=== PATIENT | female | born 1955 | race Caucasian/White ===

== ENCOUNTER → 2016-06-07 | Outpatient (CLI) | payer BC ==
--- NOTE | 2016-06-08 09:37 | WWHP ---
DATE OF SERVICE: 06/07/2016 CHIEF COMPLAINT: The patient is here for her routine gynecologic exam and mammogram. HPI: This is a 61-year-old G2, P2 with an LMP of 2009. The patient is without gynecologic complaints. She has been inconsistently using the Premarin vaginal cream, but she states it does help with her sexual activity when she does use it. She denies any postmenopausal bleeding. PAST MEDICAL HISTORY: Hypothyroidism, status post radioactive iodine treatment for hyperthyroidism, asthma which is exercise induced, and seasonal allergies. Also history of osteoporosis. She was started on Fosamax in 2014. MEDICATIONS: 1. Singulair 10 mg daily. 2. Thyroxine 88 mcg daily. 3. Alendronate 70 mg weekly. 4. Premarin vaginal cream 1 to 2 gm twice weekly. Allergies to SULFA. 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 SOCIAL HISTORY: She denies tobacco and drug use and has about 6 alcoholic drinks per week. She has been twice. She has been with her boyfriend for 28 years and lives with him. She works at [employer] in [place]. REVIEW OF SYSTEMS: She has gained about 10 pounds over the last year. RESPIRATORY: She has had some chest wall discomfort occasionally when she takes a deep breath. She denies cardiac or GI problems. PHYSICAL EXAM: Blood pressure 110/75. Height 5 feet 5 inches. Weight 140 pounds. Temperature 98.6, pulse 82. This is a well-developed, well-nourished white female who is alert and oriented x3 in no acute distress. HEENT is within normal limits. NECK: Supple without mass or thyromegaly. CHEST AND LUNGS: Clear to auscultation. HEART: Regular rate and rhythm. Breasts are without mass or discharge. Axillary exam is negative for adenopathy. BACK: Negative for CVA tenderness. ABDOMEN: Soft, nontender, without palpable masses. PELVIC EXAM: External genitalia reveals mild atrophy without lesions. Cervix and vagina reveal mild atrophy without lesions. There is a grade 1 to 2 rectocele which is noted and grade 1 cystocele which goes to a grade 2 cystocele with Valsalva. There is a grade 1 uterine prolapse as well. The uterus is midposition, nongravid size and nontender. There are no palpable adnexal masses or tenderness. Rectovaginal exam confirms a small rectocele but is otherwise negative for mass or tenderness and is negative for occult blood. EXTREMITIES: Nontender. IMPRESSION: 1. A 61-year-old menopausal female with mild pelvic prolapse consisting of grade 2 rectocele, grade 1 to 2 cystocele and grade 1 uterine prolapse. This is stable from her previous exam. 2. History of osteoporosis, doing well on alendronate. PLAN: 1. Pap smear was deferred, since she had a normal one last year. 2. Self breast examination was discussed. 3. Mammogram will be done today. 4. Continue Fosamax as directed. 5. She will also continue Premarin vaginal cream as directed. 6. I have recommended bone density screening since it has been about 2 years since her last one. We will discuss the possibility of a trial off of Fosamax in 1 to 3 years. 7. She will return in 1 year.
--- NOTE | 2016-06-09 13:32 | MM ---
Reason for exam: screening (asymptomatic). Last mammogram was performed 1 year and 1 month ago. History: Patient is postmenopausal. Lumpectomy of the right breast, June 13, 2006. Silicone gel implants in both breasts, 2003. Benign excisional biopsy of the left breast, June 08, 2000. Saline implants in both breasts, January 1996. Taking estrogen for 1 year beginning at age 56. Taking progesterone for 1 year beginning at age 56. Physical Findings: A clinical breast exam by your physician is recommended on an annual basis and results should be correlated with mammographic findings. MG Screening Mammo Implant/CAD Bilateral CC, MLO, and ID view(s) were taken. Prior study comparison: May 19, 2015, bilateral MG screening mammo implant/CAD. The breast tissue is heterogeneously dense. This may lower the sensitivity of mammography. Bilateral implants. No significant changes when compared with prior studies. ASSESSMENT: Benign, BI-RAD 2 RECOMMENDATION: Routine screening mammogram of both breasts in 1 year.
== END | disposition home or self-care (01) ==
LOC: WWCWWP 14:32
PROVIDERS: ATTEND Obstetrics & Gynecology
DX: Z12.31 Encounter for screening mammogram for malignant neoplasm of breast (principal)

== ENCOUNTER → 2016-09-08 | Outpatient (CLI) | payer BC ==
--- NOTE | 2016-09-08 17:50 | BD ---
EXAMINATION TYPE: MG DEXA axial skeleton. DATE OF EXAM: 09/08/2016 COMPARISON: Previous study dated 04/29/2014. CLINICAL HISTORY: Postmenopausal female. Height: 5 FT 3 1/2 IN Weight: 135 FRAX RISK QUESTIONS: Alcohol (3 or more units per day): NO Family History (Parent hip fracture): NO Glucocorticoids (More than 3mos): NO (Ex: prednisone, prednisolone, methylprednisolone, dexamethasone, and hydrocortisone). History of Fracture in Adulthood: NO Secondary Osteoporosis: 1. Type 1 Diabetes: NO 2. Hyperthyroidism: NO 3. Menopause before 45: NO 4. Malnutrition: NO 5. Chronic liver disease: NO Rheumatoid Arthritis: NO Current Tobacco Use: NO RISK FACTORS HISTORY OF: Active: YES Postmenopausal woman: AGE 53 Take estrogen and/or progesterone medications: VAGINAL CREAM How lon YEARS Lost more than 2 inches in height since high school: YES MEDICATIONS: Prednisone or other steroids: How Long: Thyroid Medications: YES Which medication: LEVOTHYROXINE How Lon YEARS Osteoporosis Medications: YES Which medication: FOSAMAX How Lon YEARS Additional Medications: SINGULAIR,LEVOTHYROXINE, FOSAMAX Additional History: EXAM MEASUREMENTS: Bone mineral densitometry was performed using the [email or web address] System. Bone mineral density as measured about the Lumbar spine is: ----- L1-L4(G/cm2): 0.933 T Score Values are as follows: ----- L2: -2.2 ----- L3: -2.4 ----- L4: -2.1 ----- L1-L4: -2.1 Bone mineral density has: Increased 12.1% since study of: 2014 Bone mineral density about the R hip (g/cm2): 0.776 Bone mineral density about the L hip (g/cm2): 0.801 T Score values are as follows: -----R Neck: -1.9 -----L Neck: -1.7 -----R Total: -1.3 -----L Total: -1.2 Bon mineral density has: Increased 3.4% since study of: 2014 IMPRESSION: OSTEOPENIA. NOTE: T-SCORE=SD OF THE YOUNG ADULT MEAN.
== END ==
LOC: RADBDWWP 15:37
PROVIDERS: ATTEND Obstetrics & Gynecology
DX: M81.0 Age-related osteoporosis without current pathological fracture (principal); Z79.899 Other long term (current) drug therapy; M85.80 Other specified disorders of bone density and structure, unspecified site
CPT/HCPCS: 77080

== ENCOUNTER 2016-12-01 15:33 | Emergency (ER) | payer BC, OTHER ==
[2016-12-01 16:04] VITALS: BP 139/78; PULSE 86; RESP 18; TEMP 99.6
[2016-12-01] MEDS ORDERED: PROPARACAINE 0.5% OPHTH DROPS 15 ML BTL LEFT EYE STA (16:23)
[2016-12-01] MEDS ORDERED: PROPARACAINE 0.5% OPHTH DROPS 15 ML BTL ONE (16:25)
[2016-12-01] MEDS ORDERED: DIPH,PERTUS(ACELL)TETVAC-LF 0.5 ML VIAL IM ONE (16:38)
--- NOTE | 2016-12-01 16:38 | ED ---
General Adult HPI - General Chief complaint: Eye Problems Stated complaint: IHS/Eye Problem Time Seen by Provider: 12/01/16 16:21 Source: patient, RN notes reviewed Mode of arrival: ambulatory - History of Present Illness Initial comments: Patient 61-year-old female who presents emergency room today with a chief complaint of possible foreign body to the left eye. She does admit that she was at work earlier today when some water splashed back up into her eyes. 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 She lives been little fragments of the water. She states she did have her seat glasses on but it did splash and around the side into her left eye. Patient does admit that she still feels some irritation to the left eye but denies any other complaints or symptoms. Patient denies any recent fever, chills, shortness of breath, chest pain, back pain, abdominal pain, nausea or vomiting, numbness or tingling , dysuria or hematuria, constipation or diarrhea, headaches or visual changes, or any other complaints. - Related Data Previous Rx's Medication Instructions Recorded Tobramycin 0.3% Ophth Soln [Tobrex 1 - 2 drop LEFT EYE QID 7 Days ml 12/01/16 0.3% Ophth Soln] Allergies Allergy/AdvReac Type Severity Reaction Status Date / Time Sulfa (Sulfonamide Allergy Rash/Hives Verified 12/01/16 16:05 Antibiotics) Review of Systems ROS Statement: Those systems with pertinent positive or pertinent negative responses have been documented in the HPI. ROS Other: All systems not noted in ROS Statement are negative. Past Medical History Past Medical History: Asthma Additional Past Medical History / Comment(s): HYPOTHYROID History of Any Multi-Drug Resistant Organisms: None Reported Past Surgical History: Section Additional Past Surgical History / Comment(s): BREAST AUGMENTATION, NASAL Past Psychological History: No Psychological Hx Reported Smoking Status: Never smoker Past Alcohol Use History: Occasional Past Drug Use History: None Reported General Exam - General Exam Comments Initial Comments: General: The patient is awake and alert, in no distress, and does not appear acutely ill. Eye: Pupils are equal, round and reactive to light, extra-ocular movements are intact. No nystagmus. There is normal conjunctiva bilaterally. No signs of icterus. Ears, nose, mouth and throat: There are moist mucous membranes and no oral lesions. Neck: The neck is supple, there is no tenderness or JVD. Cardiovascular: There is a regular rate and rhythm. No murmur, rub or gallop is appreciated. Respiratory: Lungs are clear to auscultation, respirations are non-labored, breath sounds are equal. No wheezes, stridor, rales, or rhonchi. Musculoskeletal: Normal ROM, no tenderness. Strength 5/5. Sensation intact. Pulses equal bilaterally 2+. Neurological: A&O x 3. CN II-XII intact, There are no obvious motor or sensory deficits. Coordination appears grossly intact. Speech is normal. Skin: Skin is warm and dry and no rashes or lesions are noted. Psychiatric: Cooperative, appropriate mood & affect, normal judgment. Course Vital Signs 12/01/16 16:00 Temperature 99.6 F Pulse Rate 86 Respiratory 18 Rate Blood Pressure 139/78 O2 Sat by Pulse 100 Oximetry Medical Decision Making - Medical Decision Making Patient's left eye was anesthetized with proparacaine which to relieve her symptoms. Her eye was then stained with fluorescein checked with Wood's lamp revealing no foreign body and according abrasions. Lids inverted and no foreign body seen. Patient's eye was then checked with a slit lamp exam again showing no signs of injury or foreign body. Patient will be placed on antibiotic drop. Her visual acuity is normal here in the emergency room. She does wear contacts but advised not wear contacts until following up with the instructor traffic safety. Given ophthalmology infection control practitioner to follow-up with. Given antibiotic drop. Tenderness is also been updated. She is advised return if any symptoms increase worsen. Disposition Clinical Impression: Eye injury Disposition: HOME SELF-CARE Condition: Good Instructions: Corneal Abrasion (ED) Additional Instructions: Results instructor traffic safety over the next 2 days as discussed use antibiotic drops as prescribed and return to emergency room symptoms increase or worsen. Please do not use contacts until symptoms have resolved. Prescriptions: Tobramycin 0.3% Ophth Soln [Tobrex 0.3% Ophth Soln] 1 - 2 drop LEFT EYE QID 7 Days ml Referrals: Chucho Lan MD [Primary Care Provider] - 1-2 days Romeo Arechiga MD [STAFF PHYSICIAN] - 1-2 days Time of Disposition: 16:47
== END 2016-12-01 17:03 | disposition home or self-care (01) ==
LOC: EC 15:33
DX: S05.92XA Unspecified injury of left eye and orbit, initial encounter (principal); Z88.2 Allergy status to sulfonamides; Z23 Encounter for immunization; X58.XXXA Exposure to other specified factors, initial encounter; Y99.0 Civilian activity done for income or pay; Y93.89 Activity, other specified; Y92.69 Other specified industrial and construction area as the place of occurrence of the external cause
CPT/HCPCS: 90471; 90715; 99283

== ENCOUNTER → 2017-06-13 | Outpatient (CLI) | payer BC ==
[2017-06-13 16:32] VITALS: BP 119/80; PULSE 76; RESP 12; TEMP 97.7; BMI 22.9
--- NOTE | 2017-06-13 17:24 | P.HPOB ---
History of Present Illness H&P Date: 06/13/17 Chief Complaint: The patient is here for her routine gynecologic exam and mammogram. This is a 62-year-old with an LMP of 2008. The patient has a history of cystocele and a rectocele. She states she can notice a slight fullness in the vagina when she has been doing heavy lifting or when she is bearing down for a bowel movement when constipated. She states it can feel like there is a tampon in the vagina. She also noticed a small bulge in the right lower abdomen near the groin. She has noticed this bulge intermittently for about 6 months. She denies any pain. Review of Systems Weight has been stable. She denies cardiac problems. Respiratory: occasional sinus congestion. G.I.: occasional heartburn. Past Medical History Past Medical History: Asthma (Exercise-induced) Additional Past Medical History / Comment(s): HYPOTHYROID status post radioactive iodine treatment for hyperthyroidism. Seasonal allergies and osteoporosis. She was started on Fosamax in 2014. 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 She also has a history of perianal herpes confirmed in 2012. History of Any Multi-Drug Resistant Organisms: None Reported Past Surgical History: Breast Surgery (Silicone implants in 2005 and breast lump removed in 2006 which was benign.), Section, Tubal Ligation Additional Past Surgical History / Comment(s): NASAL surgery, colonoscopy 2006, 2009 and 2013. Past Psychological History: No Psychological Hx Reported Smoking Status: Never smoker Past Alcohol Use History: Occasional (4 per week) Past Drug Use History: None Reported Additional History: She has been twice. She has been with her boyfriend since approximately 1989 and lives with him. She works at [employer] in [place]. Medications and Allergies Home Medications Medication Instructions Recorded Confirmed Type Tobramycin 0.3% Ophth Soln [Tobrex 1 - 2 drop LEFT EYE QID 7 Days ml 12/01/16 Rx 0.3% Ophth Soln] Alendronate Sodium [Alendronate WEEKLY 06/13/17 History Sodium] Levothyroxine Sodium [Synthroid] 88 mcg PO DAILY 06/13/17 06/13/17 History Montelukast [Singulair] DAILY 06/13/17 History Allergies Allergy/AdvReac Type Severity Reaction Status Date / Time Sulfa (Sulfonamide Allergy Rash/Hives Verified 12/01/16 16:05 Antibiotics) Exam - Vital Signs Vital signs: Vital Signs Temp Pulse Resp BP 06/13/17 16:20 97.7 F 76 12 119/80 Intake and Output 06/13/17 06/13/17 06/13/17 06:59 14:59 22:59 Other: Weight 62.596 kg Height 5'5", BMI 23.0. This is a well-developed well-nourished white female who is alert and oriented times 3 in no acute distress. HEENT: Within normal limits. NECK: Supple without mass or thyromegaly. CHEST AND LUNGS: Clear to auscultation. HEART: Regular rate and rhythm. BREASTS: Are without mass or discharge. AXILLARY EXAM: Negative for adenopathy. BACK: Negative for CVA tenderness. ABDOMEN: Soft, nontender, without palpable masses at rest. A soft 2.5 cm bulges noted from the right lower quadrant just superior to the mons pubis area only noted with Valsalva when she is standing. This is soft and nontender and reduces when she is not using the Valsalva maneuver. PELVIC EXAM: Normal external genitalia with mild atrophy. There is a grade to rectocele and a grade 2 cystocele noted with a grade 2 uterine prolapse. With Valsalva the cystocele increases to a grade 2.5. There is no unusual discharge. The vaginal mucosa shows mild atrophy but no excoriation or abnormal thickening. The uterus is midposition, nongravid size and nontender. There are no palpable adnexal masses or tenderness. RECTAL EXAM: rectovaginal exam negative for mass or tenderness and is negative for occult blood and does confirm a grade to rectocele.. EXTREMITIES: Nontender. IMPRESSION: 1. 62-year-old menopausal female with minimally symptomatic grade to rectocele , grade 2.5 cystocele and grade 2 uterine prolapse. 2. Small low abdominal wall hernia measuring 2.5 cm which is minimally symptomatic. 3. History of osteoporosis and she has been on alendronate for about 3 years. PLAN: 1. Pap smear was performed. 2. Self breast awareness was discussed. 3. Mammogram was done today. 4. Continue alendronate. And E prescription will be sent to [facility] pharmacy. 5. We have had a long discussion regarding her pelvic prolapse and small abdominal wall hernia. We had discussed possible surgical correction. After long discussion we have decided to proceed with conservative management. She will let me know if she is having worsening symptoms. She can also try negative Valsalva exercises and this was explained to her. 6. She will return in one year and PRN.
--- NOTE | 2017-06-14 10:31 | MM ---
Reason for exam: screening (asymptomatic). Last mammogram was performed 1 year ago. History: Patient is postmenopausal. Lumpectomy of the right breast, June 13, 2006. Silicone gel implants in both breasts, 2003. Benign excisional biopsy of the left breast, June 08, 2000. Saline implants in both breasts, January 1996. Took estrogen for 1 year beginning at age 56. Took progesterone for 1 year beginning at age 56. Physical Findings: A clinical breast exam by your physician is recommended on an annual basis and results should be correlated with mammographic findings. MG Screening Mammo Implant/CAD Bilateral CC and MLO view(s) were taken. Prior study comparison: June 07, 2016, bilateral MG screening mammo implant/CAD. May 19, 2015, bilateral MG screening mammo implant/CAD. The breast tissue is heterogeneously dense. This may lower the sensitivity of mammography. There is chronic nodularity bilaterally. There is no dominant lesion. Stable bilateral implants. ASSESSMENT: Benign, BI-RAD 2 RECOMMENDATION: Routine screening mammogram of both breasts in 1 year.
== END | disposition home or self-care (01) ==
LOC: WWCWWP 15:27
PROVIDERS: ATTEND Obstetrics & Gynecology
DX: Z12.31 Encounter for screening mammogram for malignant neoplasm of breast (principal); Z98.82 Breast implant status
CPT/HCPCS: 77067

== ENCOUNTER → 2018-08-14 | Outpatient (CLI) | payer BC ==
[2018-08-14 12:57] VITALS: BP 118/78; PULSE 71; RESP 18; TEMP 97.8; BMI 22.6
--- NOTE | 2018-08-14 13:52 | P.HPOB ---
History of Present Illness H&P Date: 08/14/18 Chief Complaint: The patient is here for her routine gynecologic exam and ma mmogram. This is a 63-year-old with an LMP of 2008. The patient is complaining of pain with sexual intercourse. She states that is it is not just because of dryness, but it feels like the vagina is shrinking and "closing up". The patient has a history of a small rectocele, small cystocele and some uterine prolapse. She denies any postmenopausal bleeding. She had previously used Premarin vaginal cream before, but often forgot to use it. Review of Systems The patient's weight has been stable over the last year. She denies respiratory, cardiac, or G.I. problems. Past Medical History Past Medical History: Asthma, GERD/Reflux Additional Past Medical History / Comment(s): HYPOTHYROID status post radioactive iodine treatment for hyperthyroidism. Seasonal allergies and osteoporosis. Exercise-induced asthma. She was started on Fosamax in 2014. 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 She also has a history of perianal herpes confirmed in 2012. History of Any Multi-Drug Resistant Organisms: None Reported Past Surgical History: Breast Surgery, Section, Tubal Ligation Additional Past Surgical History / Comment(s): NASAL surgery, colonoscopy 2006, 2009 and 2013. Past Psychological History: No Psychological Hx Reported Smoking Status: Never smoker Past Alcohol Use History: Occasional (6 per week) Past Drug Use History: None Reported Additional History: She is and this is her 2nd marriage. She has been with her partner since 1989. She works at [employer] in [place]. Medications and Allergies Home Medications and Allergies Comment(s): She also uses omeprazole 1 every other day. She is uncertain of the dose. Home Medications Medication Instructions Recorded Confirmed Type Alendronate Sodium 70 mg PO WEEKLY #12 tablet 06/13/17 08/14/18 Rx Levothyroxine Sodium [Synthroid] 88 mcg PO DAILY 06/13/17 08/14/18 History Montelukast [Singulair] 10 mg DAILY 06/13/17 08/14/18 History Ascorbic Acid [Vitamin C] 500 mg PO DAILY 08/14/18 08/14/18 History Cholecalciferol (Vitamin D3) 2,000 unit PO 08/14/18 History [Vitamin D3] Multivitamin [Multivitamins Adult 1 each PO 08/14/18 History Gummies] Ubidecarenone [Co Q-10] 100 mg PO 08/14/18 History Allergies Allergy/AdvReac Type Severity Reaction Status Date / Time Sulfa (Sulfonamide Allergy Rash/Hives Verified 12/01/16 16:05 Antibiotics) Exam Vital Signs Temp Pulse Resp BP Pulse Ox 08/14/18 12:53 97.8 F 71 18 118/78 98 Intake and Output 08/13/18 08/14/18 08/14/18 22:59 06:59 14:59 Other: Weight 61.689 kg Height 5'5", weight 136 pounds, BMI 22.6. This is a well-developed well-nourished white female who is alert and oriented times 3 in no acute distress. HEENT: Within normal limits. NECK: Supple without mass or thyromegaly. CHEST AND LUNGS: Clear to auscultation. HEART: Regular rate and rhythm. BREASTS: Are without mass or discharge. Breasts are consistent with bilateral implants. AXILLARY EXAM: Negative for adenopathy. BACK: Negative for CVA tenderness. ABDOMEN: Soft, nontender, without palpable masses. PELVIC EXAM: Normal external genitalia with mild to moderate atrophy. Cervix and vagina appear normal with mild to moderate atrophy. There is no unusual discharge. At rest there is a grade 1-2 cystocele, a grade 1 to 2 rectocele, and a grade 1 to 2 uterine prolapse. With Valsalva the cystocele increases to a grade 2 cystocele. The uterus is midposition, nongravid size and nontender. There are no palpable adnexal masses or tenderness. RECTAL EXAM: rectovaginal exam is negative for mass or tenderness and is negative for occult blood. EXTREMITIES: Nontender. IMPRESSION: 1. 63-year-old menopausal female with stable cystocele, rectocele and uterine prolapse. 2. Dyspareunia secondary to genital atrophy and may also be related to the genital prolapse in number 1. 3. History of osteoporosis and she has been on alendronate since 2014. PLAN: 1. Pap smear was deferred says she had a normal one on 06/13/2017. 2. Self breast awareness was discussed with the patient. 3. Screening mammogram will be done today. 4. Osteoporosis management was discussed. I have stressed the importance of adequate calcium, vitamin D and regular exercise. Recommended amounts of calcium and vitamin D were also discussed. She will continue to take the alendronate. We will repeat bone density testing in the near future. The order slip was given to the patient for this. The electronic prescription will be sent to [facility] pharmacy in [place]. 5. The patient will be re-started on Premarin vaginal cream, 1 to 2 g intravaginally twice-weekly. I've also recommended that she use an [id number] lubricant. 6.She was advised to return in one year for her annual well woman exam.
--- NOTE | 2018-08-15 09:57 | MM ---
Reason for exam: screening (asymptomatic). Last mammogram was performed 1 year and 2 months ago. History: Patient is postmenopausal. Lumpectomy of the right breast, June 13, 2006. Silicone gel implants in both breasts, 2003. Benign excisional biopsy of the left breast, June 08, 2000. Saline implants in both breasts, January 1996. Took estrogen for 1 year beginning at age 56. Took progesterone for 1 year beginning at age 56. Physical Findings: A clinical breast exam by your physician is recommended on an annual basis and results should be correlated with mammographic findings. MG 3D Screen Mammo Imp/Cad Bilateral CC, MLO, and ID view(s) were taken. Prior study comparison: June 13, 2017, bilateral MG screening mammo implant/CAD. June 07, 2016, bilateral MG screening mammo implant/CAD. The breast tissue is heterogeneously dense. This may lower the sensitivity of mammography. Stable benign calcifications. Bilateral implants are intact. No significant changes when compared with prior studies. ASSESSMENT: Benign, BI-RAD 2 RECOMMENDATION: Routine screening mammogram of both breasts in 1 year.
== END | disposition home or self-care (01) ==
LOC: WWCWWP 12:31
PROVIDERS: ATTEND Obstetrics & Gynecology
DX: Z12.31 Encounter for screening mammogram for malignant neoplasm of breast (principal); Z98.82 Breast implant status
CPT/HCPCS: 77063; 77067

== ENCOUNTER → 2018-09-10 | Outpatient (CLI) | payer BC ==
--- NOTE | 2018-09-11 07:09 | BD ---
EXAMINATION TYPE: Axial Bone Density DATE OF EXAM: 09/10/2018 COMPARISON: NONE CLINICAL HISTORY: Known osteoporosis Height: 64 IN Weight: 135 LBS RISK FACTORS HISTORY OF: Active: YES Diet low in dairy products/other sources of calcium: YES Postmenopausal woman: AGE 63 Take estrogen and/or progesterone medications: YES How lon MONTH PREMARIN CREAM MEDICATIONS: Thyroid Medications: YES Which medication: Levothyroxine How Lon+ YEARS Osteoporosis Medications: YES Which medication: Actonel How Lon YEARS Additional Medications: ACTONEL, LEVOTHYROXINE, PREMARIN CREAM, CALCIUM, VIT D, SINGULAIR, EXAM MEASUREMENTS: Bone mineral densitometry was performed using the [employer] System. Bone mineral density as measured about the Lumbar spine is: ----- L1-L4(G/cm2): 0.935 T Score Values are as follows: ----- L2: -2.2 ----- L3: -2.1 ----- L4: -2.0 ----- L1-L4: -2.0 Bone mineral density has: Increased 1.2% since study of: 09/08/2016 Bone mineral density about the R hip (g/cm2): 0.806 Bone mineral density about the L hip (g/cm2): 0.815 T Score values are as follows: -----R Neck: -1.7 -----L Neck: -1.6 -----R Total: -1.1 -----L Total: -1.3 Bone mineral density has: Increased 0.9% since study of: 09/08/2016 IMPRESSION: Osteopenia (T Score between -2.5 and -1). There is slightly increased risk of fracture and the patient may be considered for treatment. Re-Screen 2-5 years. NOTE: T-SCORE=SD OF THE YOUNG ADULT MEAN.
--- NOTE | 2018-09-11 15:43 | P.PN ---
Progress Note - Text Progress Note Date: 09/11/18 OUTPATIENT FOLLOW-UP NOTE TEST(S)/RESULTS: bone density test on 09/10/2018 shows osteopenia with slight improvement from her last bone density test. METHOD OF NOTIFICATION: the patient was notified by phone. PATIENT COMMENTS: the patient is happy to hear this result. DIAGNOSIS: improvement in bone density test from osteoporosis going to osteopenia on alendronate. DISCUSSION: the patient will continue on alendronate for one more year which will complete a five-year treatment with alendronate. PLAN: She was advised to return in one year for her annual well woman exam. We will plan on discontinuing alendronate at that time. Next bone Density test in 2 to 3 years.
== END | disposition home or self-care (01) ==
LOC: RADBDWWP 15:48
PROVIDERS: ATTEND Obstetrics & Gynecology
DX: M85.851 Other specified disorders of bone density and structure, right thigh (principal); M85.852 Other specified disorders of bone density and structure, left thigh; M85.88 Other specified disorders of bone density and structure, other site; Z78.0 Asymptomatic menopausal state
CPT/HCPCS: 77080

== ENCOUNTER → 2018-09-15 | Outpatient (CLI) | payer BC ==
[2018-09-15 17:04] LABS: T4, Free (Free Thyroxine) 1.3 ng/dL (0.80-1.80)
[2018-09-17 09:04] LABS: HCT 40.5 % (34.0-46.0); HGB 12.7 gm/dL (11.4-16.0); Hypochromasia Slight; MCH 31.1 pg (25.0-35.0); MCHC 31.4 g/dL (31.0-37.0); Mean Platelet Volume 9.9; Platelet Count 329 k/uL (150-450); RBC 4.09 m/uL (3.80-5.40); RDW 13.8 % (11.5-15.5); WBC 4.4 k/uL (3.8-10.6)
[2018-09-17 13:29] LABS: African American GFR (CKD) 90.3 (60.0-200.0); Albumin 4.1 g/dL (3.80-4.90); Albumin/Globulin Ratio 1.78 (1.60-3.17); Anion Gap 12.2 mmol/L (4.00-12.00); Carbon Dioxide 20.8 mmol/L (21.6-31.8); Globulin 2.3 g/dL (1.6-3.3); LDL Cholesterol,Calculated 102.8 mg/dL (0.0-131.0); Potassium 4.6 mmol/L (3.5-5.5); Total Bilirubin 0.3 mg/dL (0.3-1.2); Total Protein 6.4 g/dL (6.2-8.2); VLDL Calculation 13.2 mg/dL (5.00-40.00)
== END | disposition home or self-care (01) ==
LOC: LABWHC1 08:38
PROVIDERS: ATTEND Internal Medicine
DX: Z00.00 Encounter for general adult medical examination without abnormal findings (principal); M85.80 Other specified disorders of bone density and structure, unspecified site; E03.9 Hypothyroidism, unspecified
CPT/HCPCS: 36415; 80053; 80061; 82306; 84439; 84443; 84481; 85027

== ENCOUNTER 2019-06-28 08:17 | Emergency (ER) | payer BC ==
[2019-06-28 08:28] VITALS: BP 143/85; PULSE 88; RESP 18; TEMP 97.9
--- NOTE | 2019-06-28 08:56 | ED ---
General Adult HPI - General Chief complaint: Fall Stated complaint: horse accident Time Seen by Provider: 06/28/19 08:28 Source: patient, RN notes reviewed Mode of arrival: ambulatory Limitations: no limitations - History of Present Illness Initial comments: Patient is a pleasant 64-year-old female presenting to the emergency Department with complaints of back pain. Patient states 2 days ago she was walking her horse [place]. Horse jumped and struck her in the left upper back. Patient fell down. Patient is unclear whether or not the horse may have stepped on her. Patient states discomfort increased somewhat yesterday, more last night. Patient denies any dyspnea however states it does hurt to take a deep breath. Patient also has a bruise on her right thigh. Patient did not lose consciousness. No neck or midline back pain. No dyspnea or chest pain. No abdominal pain. - Related Data Home Medications Medication Instructions Recorded Confirmed Levothyroxine Sodium [Synthroid] 88 mcg PO DAILY 06/13/17 08/14/18 Montelukast [Singulair] 10 mg DAILY 06/13/17 08/14/18 Ascorbic Acid [Vitamin C] 500 mg PO DAILY 08/14/18 08/14/18 Cholecalciferol (Vitamin D3) 2,000 unit PO 08/14/18 [Vitamin D3] Multivitamin [Multivitamins Adult 1 each PO 08/14/18 Gummies] Ubidecarenone [Co Q-10] 100 mg PO 08/14/18 Previous Rx's Medication Instructions Recorded Alendronate Sodium 70 mg PO WEEKLY #12 tab 08/14/18 Estrogens, Conjugated Cream 1 g VAGINAL DIRECTED #1 tube 08/14/18 [Premarin Cream] Cyclobenzaprine [Flexeril] 10 mg PO TID PRN #12 tablet 06/28/19 Ibuprofen [Motrin] 600 mg PO Q6HR PRN #20 tab 06/28/19 Allergies Allergy/AdvReac Type Severity Reaction Status Date / Time Sulfa (Sulfonamide Allergy Rash/Hives Verified 06/28/19 08:27 Antibiotics) Review of Systems ROS Statement: Those systems with pertinent positive or pertinent negative responses have been documented in the HPI. ROS Other: All systems not noted in ROS Statement are negative. Constitutional: Denies: fever Eyes: Denies: eye pain ENT: Denies: ear pain Respiratory: Reports: as per HPI. Denies: cough, dyspnea Cardiovascular: Denies: palpitations Endocrine: Denies: fatigue Gastrointestinal: Denies: abdominal pain Genitourinary: Denies: dysuria Musculoskeletal: Reports: as per HPI Skin: Denies: rash Neurological: Denies: weakness Past Medical History Past Medical History: Asthma, GERD/Reflux Additional Past Medical History / Comment(s): HYPOTHYROID status post radioactive iodine treatment for hyperthyroidism. Seasonal allergies and osteoporosis. Exercise-induced asthma. She was started on Fosamax in 2014. 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 She also has a history of perianal herpes confirmed in 2012. History of Any Multi-Drug Resistant Organisms: None Reported Past Surgical History: Breast Surgery, Section, Tubal Ligation Additional Past Surgical History / Comment(s): NASAL surgery, colonoscopy 2006, 2009 and 2013. Past Psychological History: No Psychological Hx Reported Smoking Status: Never smoker Past Alcohol Use History: Occasional Past Drug Use History: None Reported General Exam Limitations: no limitations General appearance: alert, in no apparent distress Head exam: Present: atraumatic, normocephalic Eye exam: Present: normal appearance Neck exam: Present: normal inspection. Absent: tenderness Respiratory exam: Present: normal lung sounds bilaterally. Absent: chest wall tenderness Cardiovascular Exam: Present: regular rate, normal rhythm Expanded Peripheral pulses: 2+: Radial (R), Radial (L) GI/Abdominal exam: Present: soft. Absent: tenderness Extremities exam: Present: normal inspection, full ROM. Absent: tenderness Back exam: Present: tenderness (Left lateral ribs with mild ecchymosis and tenderness lateral to and below the scapula) Neurological exam: Present: alert. Absent: motor sensory deficit Psychiatric exam: Present: normal affect, normal mood Skin exam: Present: other (Mild ecchymosis left lateral back inferior and lateral to the scapula. Mild ecchymosis without tenderness right lateral to posterior thigh) Course Vital Signs 06/28/19 08:23 Temperature 97.9 F Pulse Rate 88 Respiratory 18 Rate Blood Pressure 143/85 O2 Sat by Pulse 100 Oximetry - Reevaluation(s) Reevaluation #1: 06/28/19 08:55 Patient offered additional imaging of her right thigh however refused and only wants rib x-rays. Medical Decision Making - Medical Decision Making Patient reevaluated and updated. - Radiology Data Interpreted by me: Chest and left rib x-rays shows left seventh rib fracture, old rib fractures on the right Disposition Clinical Impression: Left rib fracture Disposition: HOME SELF-CARE Condition: Stable Instructions (If sedation given, give patient instructions): Rib Fracture (ED) Additional Instructions: Please follow-up with primary care physician in the next couple days for recheck. Return for difficulty in breathing, increase pain, worsening or changing symptoms or other concerns. [id number] Tylenol or Motrin as needed. Prescription for muscle relaxer and ibuprofen 600 sent to [facility] Prescriptions: Cyclobenzaprine [Flexeril] 10 mg PO TID PRN #12 tablet PRN Reason: Pain Ibuprofen [Motrin] 600 mg PO Q6HR PRN #20 tab PRN Reason: Pain Is patient prescribed a controlled substance at d/c from ED?: No Referrals: Chucho Lan MD [Primary Care Provider] - 1-2 days Time of Disposition: 09:14
[2019-06-28] MEDS ORDERED: ACET/COD 300 MG/30 MG STARTER PACK 6 TAB BTL PO STA (09:10)
--- NOTE | 2019-06-28 09:24 | XR ---
EXAMINATION TYPE: XR ribs LT w pa chest xray DATE OF EXAM: 06/28/2019 COMPARISON: None HISTORY: Posterior left rib pain TECHNIQUE: Frontal view of the chest and 6 views of the left ribs are submitted. FINDINGS: Chronic rib deformities are seen on the right. There is no pneumothorax. Tiny left pleural effusion noted. There is an acute appearing fracture involving the posterior lateral margin the left seventh rib. Basilar infiltrate noted. Slight curvature the spine correlate for scoliosis. Biapical p leural thickening. IMPRESSION: 1. Acute displaced rib fracture posterior lateral left seventh rib. 2. Left basilar infiltrate and small effusion.
== END 2019-06-28 09:39 | disposition home or self-care (01) ==
LOC: EC 08:17
DX: S22.32XA Fracture of one rib, left side, initial encounter for closed fracture (principal); S20.222A Contusion of left back wall of thorax, initial encounter; S40.019A Contusion of unspecified shoulder, initial encounter; S70.11XA Contusion of right thigh, initial encounter; J45.909 Unspecified asthma, uncomplicated; Z79.890 Hormone replacement therapy; Z79.51 Long term (current) use of inhaled steroids; Z79.899 Other long term (current) drug therapy; Z88.2 Allergy status to sulfonamides; W55.12XA Struck by horse, initial encounter; Y93.K1 Activity, walking an animal
CPT/HCPCS: 99283

== ENCOUNTER → 2019-08-20 | Outpatient (CLI) | payer BC ==
[2019-08-20 16:12] VITALS: BP 121/80; PULSE 70; RESP 18; TEMP 98.5
--- NOTE | 2019-08-20 17:14 | P.HPOB ---
History of Present Illness H&P Date: 08/20/19 Chief Complaint: The patient is here for her routine gynecologic exam. This is a 64-year-old with an LMP of 2008. The patient is without gynecologic complaints and denies any postmenopausal bleeding. She has a history of a small rectocele, small cystocele and some uterine prolapse. She denies any significant problems from the pelvic prolapse. Denies any postmenopausal bleeding. Review of Systems Her weight has been stable.. She denies respiratory, cardiac and G.I. problems. She denies maltreatment or problems with falling. : she denies any significant problems with urinary leakage but occasionally has small amount of leakage with sneezing. Past Medical History Past Medical History: Asthma, GERD/Reflux, Thyroid Disorder Additional Past Medical History / Comment(s): HYPOTHYROID status post radioactive iodine treatment for hyperthyroidism. Seasonal allergies. Exercise-induced asthma. Osteoporosis. She was started on Fosamax in 2014. 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 She also has a history of perianal herpes confirmed in 2012. History of Any Multi-Drug Resistant Organisms: None Reported Past Surgical History: Breast Surgery, Section, Tubal Ligation Additional Past Surgical History / Comment(s): Bilateral breast augmentation. NASAL surgery, colonoscopy 2014(next after 5yr). Past Psychological History: No Psychological Hx Reported Smoking Status: Never smoker Past Alcohol Use History: Occasional (3 per day during the summer.) Past Drug Use History: None Reported Additional History: She is and this is her second marriage. She has been with her partner since 1989. She works at [employer] in [place]. 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 Medications and Allergies Home Medications Medication Instructions Recorded Confirmed Type Levothyroxine Sodium [Synthroid] 88 mcg PO DAILY 06/13/17 08/20/19 History Montelukast [Singulair] 10 mg PO DAILY 06/13/17 08/20/19 History Alendronate Sodium 70 mg PO WEEKLY #12 tab 08/14/18 08/20/19 Rx Ascorbic Acid [Vitamin C] 500 mg PO DAILY 08/14/18 08/20/19 History Cholecalciferol (Vitamin D3) 2,000 unit PO DAILY 08/14/18 08/20/19 History [Vitamin D3] Multivitamin [Multivitamins Adult 1 each PO DAILY 08/14/18 08/20/19 History Gummies] Ibuprofen [Motrin] 600 mg PO Q6HR PRN #20 tab 06/28/19 08/20/19 Rx Allergies Allergy/AdvReac Type Severity Reaction Status Date / Time Sulfa (Sulfonamide Allergy Rash/Hives Verified 08/20/19 16:03 Antibiotics) Exam Vital Signs Temp Pulse Resp BP Pulse Ox 08/20/19 16:06 98.5 F 70 18 121/80 99 Intake and Output 08/20/19 08/20/19 08/20/19 06:59 14:59 22:59 Other: Weight 60.781 kg Height 5 feet 4 inches, weight 134 pounds, BMI 23.0. This is a well-developed well-nourished white female who is alert and oriented times 3 in no acute distress. HEENT: Within normal limits. NECK: Supple without mass or thyromegaly. CHEST AND LUNGS: Clear to auscultation. HEART: Regular rate and rhythm. BREASTS: Are without mass or discharge. Breasts are consistent with bilateral implants. AXILLARY EXAM: Negative for adenopathy. BACK: Negative for CVA tenderness. ABDOMEN: Soft, nontender, without palpable masses. There is a small right low abdominal hernia noted with Valsalva that the patient states she has had for many years and does not cause her much problems. PELVIC EXAM: Normal external genitalia with mild to moderate atrophy. Cervix and vagina appear normal is mild atrophy. There is no unusual discharge. There is a grade 1-2 cystocele, grade 1-2 uterine prolapse and grade 1-2 rectocele. This is stable from her previous exam. The uterus is midposition, nongravid size and nontender. There are no palpable adnexal masses or tenderness. RECTAL EXAM: There is a small external hemorrhoid which does not appear inflamed. Rectovaginal exam is negative for mass or tenderness and is negative for occult blood. EXTREMITIES: Nontender. IMPRESSION: 1. 64-year-old menopausal female with stable grade 1-2 cystocele, grade 1-2 uterine prolapse, and grade 1-2 rectocele. These are asymptomatic. 2. Otherwise unremarkable gynecologic exam. 3. History of osteoporosis status post 5 years use of alendronate with bone density test improvements on alendronate. PLAN: 1. Pap smear was performed. If this is negative and after reviewing previous Pap smears I determined she has had adequate screening, we will consider discontinuing Pap smears. 2. Self breast awareness was discussed with the patient. 3. Screening mammogram is scheduled for 10/10/2019 and the order slip was given to the patient for this. 4. I have advised that she look into doing a colonoscopy since she is now due for this. She will discuss this with her PCP. 5. Osteoporosis management was discussed. I have stressed the importance of adequate calcium, vitamin D and regular exercise. Recommended amounts of calcium and vitamin D were also discussed. Since she has completed 5 years use of Fosamax, we will have a trial off of Fosamax. We will plan on repeating bone density testing next year. 6. We have discussed her pelvic prolapse which is mild at this time. She is to avoid heavy repetitive lifting and bearing down. We also discussed negative Valsalva exercises which she can use when she has been on her feet for long time and prior to voiding. 7. She was advised to return in one year for her annual well woman exam.
--- NOTE | 2019-09-04 09:12 | P.PN ---
Progress Note - Text Progress Note Date: 09/04/19 OUTPATIENT FOLLOW-UP NOTE TEST(S)/RESULTS: Pap smear done on 08/20/2019 was negative. A comment was made that there was a shift in the vaginal nura suggestive of bacterial vaginosis. METHOD OF NOTIFICATION: She was notified by phone. PATIENT COMMENTS: She states she has not had any vaginal discharge or odor. DIAGNOSIS: Negative Pap smear with no symptoms of bacterial vaginosis. DISCUSSION: She was instructed to call if she develops symptoms such as discharge or odor. PLAN: Mammogram is scheduled for 10/10/2019. She'll also return in 1-2 years for her well woman examination.
--- NOTE | 2019-09-17 16:07 | P.PN ---
Progress Note - Text Progress Note Date: 09/17/19 The patient has called regarding some vaginitis symptoms. Her recent Pap smear in August was negative with a shift in the vaginal nura suggestive of bacterial vaginosis. At that time she was not having symptoms, but now she is feeling some vaginal itching and irritation without discharge or odor. She does not think it is a yeast infection. She will be treated for probable bacterial vaginosis. She is requesting the vaginal gel for the treatment declining oral medication for this. MetroGel vaginal 1 applicator into the vagina daily at bedtime 5 days. The prescription will be sent electronically to my her pharmacy in [place]. She was instructed to call if symptoms are not improv ing or if problems.
== END | disposition home or self-care (01) ==
LOC: WWCWWP 15:41
PROVIDERS: ATTEND Obstetrics & Gynecology
DX: Z53.9 Procedure and treatment not carried out, unspecified reason (principal)

== ENCOUNTER → 2019-08-26 | Outpatient (CLI) | payer BC ==
--- NOTE | 2019-08-26 09:26 | XR ---
EXAMINATION TYPE: XR lumbosacral spine min 4V DATE OF EXAM: 08/26/2019 CLINICAL HISTORY: pain COMPARISON: NONE TECHNIQUE: Frontal, lateral, and oblique images of the lumbar spine are obtained. FINDINGS: Mild degenerative change noted at multiple levels. The grade 1 anterolisthesis L4 and L5 measuring 3 mm. Severe lower lumbar facet joint arthropathy. No compression fracture seen. No bony lesion identif ied. IMPRESSION: Degenerative changes as noted.
--- NOTE | 2019-08-26 14:29 | XR ---
EXAMINATION TYPE: XR Hip Bilateral Complete DATE OF EXAM: 08/26/2019 CLINICAL HISTORY: pain TECHNIQUE: AP and frogleg views of the bilateral hips are obtained. COMPARISON: None. FINDINGS: There is no acute fracture/dislocation evident. The joint space appears mildly narrowed. The overlying soft tissue appears unremarkable. IMPRESSION: 1. There is no acute fracture or dislocation. ICD 10 NO FRACTURE, INITIAL EVALUATION
== END | disposition home or self-care (01) ==
LOC: RADXRMAIN 07:47
PROVIDERS: ATTEND Internal Medicine
DX: M47.897 Other spondylosis, lumbosacral region (principal); M54.5 Low back pain
CPT/HCPCS: 72110; 73521

== ENCOUNTER → 2020-08-29 | Outpatient (CLI) | payer BC ==
[2020-08-29 11:45] LABS: Basophils # (A) 0.08 X 10*3/uL (0.00-0.10); Basophils % (A) 1.6 %; Eosinophils # (A) 0.25 X 10*3/uL (0.04-0.35); Eosinophils % (A) 4.9 %; HCT 38.8 % (37.2-46.3); HGB 12.2 g/dL (12.0-15.0); Lymphocytes # (A) 1.48 X 10*3/uL (0.90-5.00); Lymphocytes % (A) 28.7 %; MCH 30.5 pg (27.0-32.0); MCHC 31.4 g/dL (32.0-37.0); Mean Platelet Volume 9.9 fL (9.5-12.2); Monocytes # (A) 0.45 X 10*3/uL (0.20-1.00); Monocytes % (A) 8.7 %; Neutrophils # (A) 2.87 X 10*3/uL (1.80-7.70); Neutrophils % (A) 55.7 %; Platelet Count 303 X 10*3/uL (140-440); RDW 12.5 % (11.5-14.5); WBC 5.15 X 10*3/uL (4.50-10.00)
[2020-08-29 12:07] LABS: Albumin 4.3 g/dL (3.80-4.90); Albumin/Globulin Ratio 1.59 (1.60-3.17); Anion Gap 5.2 mmol/L (4.00-12.00); Calcium 9.2 mg/dL (8.7-10.3); Carbon Dioxide 29.8 mmol/L (21.6-31.8); Chol/HDL Ratio 2.83; Globulin 2.7 g/dL (1.6-3.3); LDL Cholesterol,Calculated 116.6 mg/dL (0.0-131.0); Non-African American GFR(CKD) 76.8 (60.0-200.0); Potassium 3.9 mmol/L (3.5-5.5); Total Bilirubin 0.3 mg/dL (0.2-1.2); VLDL Calculation 11.4 mg/dL (5.00-40.00)
[2020-08-29 12:16] LABS: T4, Free (Free Thyroxine) 1.6 ng/dL (0.80-1.80)
== END | disposition home or self-care (01) ==
LOC: LABWHC1 08:06
PROVIDERS: ATTEND Internal Medicine
DX: Z00.00 Encounter for general adult medical examination without abnormal findings (principal); E03.9 Hypothyroidism, unspecified
CPT/HCPCS: 36415; 80053; 80061; 82306; 84439; 84443; 85025

== ENCOUNTER → 2020-10-13 | Outpatient (CLI) | payer BC ==
[2020-10-13 12:58] VITALS: BP 106/75; PULSE 91; RESP 16; TEMP 98
--- NOTE | 2020-10-13 13:40 | P.HPOB ---
History of Present Illness H&P Date: 10/13/20 Chief Complaint: The patient is here for her routine gynecologic exam and ma mmogram. This is a 65-year-old with an LMP of 2008. The patient states she is infrequently sexually active and does have vaginal dryness. She has tried vaginal lubricants without any improvement. She previously used vaginal estrogen cream and is not interested in any form of estrogen at this time. She is otherwise without gynecologic complaints. She denies any postmenopausal bleeding. She has had rare perianal HSV outbreaks. Review of Systems The patient's weight has been stable over the last year. She denies respiratory, cardiac, or G.I. problems. Past Medical History Past Medical History: Asthma, GERD/Reflux, Thyroid Disorder Additional Past Medical History / Comment(s): HYPOTHYROID status post radioactive iodine treatment for hyperthyroidism. Seasonal allergies. Exercise-induced asthma. Osteoporosis and used Fosamax from [id number]. 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 She also has a history of perianal herpes confirmed in 2012. History of Any Multi-Drug Resistant Organisms: None Reported Past Surgical History: Breast Surgery, Section, Tubal Ligation Additional Past Surgical History / Comment(s): Bilateral breast augmentation. NASAL surgery, colonoscopy 2019(next after 5yr). Past Psychological History: No Psychological Hx Reported Smoking Status: Never smoker Past Alcohol Use History: Occasional (0-3 per day) Past Drug Use History: None Reported Additional History: She is and this is her second marriage. She is infrequently sexually active. She plans to retire in May 2021. 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 - Past Family History Aunt Family Medical History: Cancer Additional Family Medical History / Comment(s): Cancer of the vulva. Medications and Allergies Home Medications Medication Instructions Recorded Confirmed Type Levothyroxine Sodium [Synthroid] 88 mcg PO DAILY 06/13/17 10/13/20 History Montelukast [Singulair] 10 mg PO DAILY 06/13/17 10/13/20 History Ascorbic Acid [Vitamin C] 500 mg PO DAILY 08/14/18 10/13/20 History Cholecalciferol (Vitamin D3) 2,000 unit PO DAILY 08/14/18 10/13/20 History [Vitamin D3] Multivitamin [Multivitamins Adult 1 each PO DAILY 08/14/18 10/13/20 History Gummies] Ibuprofen [Motrin] 600 mg PO Q6HR PRN #20 tab 06/28/19 10/13/20 Rx Omeprazole 40 mg PO DAILY 10/13/20 10/13/20 History Zinc/Magnesium/Calcium 1 tab PO DAILY 10/13/20 10/13/20 History Allergies Allergy/AdvReac Type Severity Reaction Status Date / Time Sulfa (Sulfonamide Allergy Rash/Hives Verified 10/13/20 12:49 Antibiotics) Exam Vital Signs Temp Pulse Resp BP Pulse Ox 10/13/20 12:53 98.0 F 91 16 106/75 98 Intake and Output 10/12/20 10/13/20 10/13/20 22:59 06:59 14:59 Other: Weight 59.874 kg Height 5 feet 3-1/2 inches, weight 132 pounds, BMI 23.0. This is a well-developed well-nourished white female who is alert and oriented times 3 in no acute distress. HEENT: Within normal limits. NECK: Supple without mass or thyromegaly. CHEST AND LUNGS: Clear to auscultation. HEART: Regular rate and rhythm. BREASTS: Are without mass or discharge. Breasts are consistent with bilateral implants. AXILLARY EXAM: Negative for adenopathy. BACK: Negative for CVA tenderness. ABDOMEN: Soft, nontender, without palpable masses. PELVIC EXAM: Normal external genitalia with mild to moderate atrophy. Cervix and vagina reveals a grade 1-2 cystocele, grade 1-2 uterine prolapse and grade 1-2 rectocele. There is mild to moderate vaginal atrophy without lesions. There is no unusual discharge. The uterus is midposition, nongravid size and nontender. There are no palpable adnexal masses or tenderness. RECTAL EXAM: Rectovaginal exam is negative for mass or tenderness and is negative for occult blood. EXTREMITIES: Nontender. IMPRESSION: 1. 65-year-old menopausal female with stable grade 1-2 pelvic prolapse including small cystocele, small uterine prolapse and small rectocele. The pelvic prolapse is asymptomatic. 2. History of osteoporosis status post 5 years use of Fosamax. 3. History of perianal HSV with rare recurrences. PLAN: 1. Pap smears have been discontinued because of her age and low risk nature. 2. Self breast awareness was discussed with the patient. We have also discussed symptoms associated with inflammatory breast cancer. 3. Screening mammogram will be done today. 4. Osteoporosis management was discussed. I have stressed the importance of adequate calcium, vitamin D and regular exercise. Recommended amounts of calcium and vitamin D were also discussed. I recommended repeating bone density testing and the order slip was given to the patient for this. 5. She has not received a Covid vaccination. We discussed reasons why this may be beneficial. I have recommended she reconsider her decision about the vaccination. 6. She was advised to return in one year for her annual well woman exam.
--- NOTE | 2020-10-15 10:05 | MM ---
Reason for exam: screening (asymptomatic). Last mammogram was performed 1 year ago. History: Patient is postmenopausal. Lumpectomy of the right breast, June 13, 2006. Silicone gel implants in both breasts, 2003. Benign excisional biopsy of the left breast, June 08, 2000. Saline implants in both breasts, January 1996. Took estrogen for 1 year beginning at age 56. Took progesterone for 1 year beginning at age 56. Physical Findings: A clinical breast exam by your physician is recommended on an annual basis and results should be correlated with mammographic findings. MG 3D Screen Mammo Imp W/Cad DAVID Bilateral CC, MLO, and ID view(s) were taken. Prior study comparison: October 10, 2019, bilateral MG 3d screen mammo imp/cad. August 14, 2018, bilateral MG 3d screen mammo imp/cad. The breast tissue is heterogeneously dense. This may lower the sensitivity of mammography. Bilateral breast prothesis. Calcification on left prothesis. No significant changes when compared with prior studies. ASSESSMENT: Benign, BI-RAD 2 RECOMMENDATION: Routine screening mammogram of both breasts in 1 year. LASHONDA
== END ==
LOC: WWCWWP 12:33
PROVIDERS: ATTEND Obstetrics & Gynecology
DX: Z12.31 Encounter for screening mammogram for malignant neoplasm of breast (principal); Z01.419 Encounter for gynecological examination (general) (routine) without abnormal findings; N81.4 Uterovaginal prolapse, unspecified; N81.6 Rectocele; M81.0 Age-related osteoporosis without current pathological fracture; J45.909 Unspecified asthma, uncomplicated; E05.90 Thyrotoxicosis, unspecified without thyrotoxic crisis or storm; K21.9 Gastro-esophageal reflux disease without esophagitis; Z86.19 Personal history of other infectious and parasitic diseases; Z79.899 Other long term (current) drug therapy; Z88.2 Allergy status to sulfonamides
CPT/HCPCS: 77062; 77063; 77066; 77067

== ENCOUNTER → 2021-03-06 | Outpatient (CLI) | payer BC ==
[2021-03-06 11:50] LABS: Basophils # (A) 0.08 X 10*3/uL (0.00-0.10); Basophils % (A) 1.3 %; Eosinophils # (A) 0.32 X 10*3/uL (0.04-0.35); Eosinophils % (A) 5.3 %; HCT 39.6 % (37.2-46.3); HGB 12.5 g/dL (12.0-15.0); Lymphocytes # (A) 1.63 X 10*3/uL (0.90-5.00); Lymphocytes % (A) 27.2 %; MCH 30.3 pg (27.0-32.0); MCHC 31.6 g/dL (32.0-37.0); MCV 96.1 fL (80.0-97.0); Mean Platelet Volume 10.1 fL (9.5-12.2); Monocytes # (A) 0.48 X 10*3/uL (0.20-1.00); Neutrophils # (A) 3.47 X 10*3/uL (1.80-7.70); Platelet Count 282 X 10*3/uL (140-440); RBC 4.12 X 10*6/uL (4.10-5.20); RDW 12.6 % (11.5-14.5); WBC 5.99 X 10*3/uL (4.50-10.00)
[2021-03-06 12:09] LABS: ALT 14 U/L (8-44); AST 15 U/L (13-35); African American GFR (CKD) 84.4 (60.0-200.0); Albumin 4.1 g/dL (3.8-4.9); Albumin/Globulin Ratio 1.54 (1.60-3.17); Alkaline Phosphatase 54 U/L (41-126); BUN/Creat Ratio 13.52 Ratio (12.00-20.00); Blood Urea Nitrogen 11.3 mg/dL (9.0-27.0); Carbon Dioxide 23.1 mmol/L (20.0-27.5); Chloride 106 mmol/L (96-109); Chol/HDL Ratio 3.17 Ratio; Globulin 2.7 g/dL (1.6-3.3); Glucose 105 mg/dL (70-110); LDL Cholesterol,Calculated 126.4 mg/dL (0.0-131.0); Non-African American GFR(CKD) 72.8 (60.0-200.0); Potassium 4.2 mmol/L (3.5-5.5); Sodium 141 mmol/L (135-145); Total Protein 6.8 g/dL (6.2-8.2); VLDL Calculation 11.22 mg/dL (5.00-40.00)
== END | disposition home or self-care (01) ==
LOC: LABWHC1 08:28
PROVIDERS: ATTEND Family Medicine
DX: E55.9 Vitamin D deficiency, unspecified (principal); E03.9 Hypothyroidism, unspecified; K21.9 Gastro-esophageal reflux disease without esophagitis; J45.909 Unspecified asthma, uncomplicated
CPT/HCPCS: 36415; 80053; 80061; 82306; 83036; 84439; 84443; 85025

== ENCOUNTER 2021-06-13 09:01 | Emergency (ER) | payer MEDICARE, BC ==
[2021-06-13] MEDS ORDERED: SODIUM CHLORIDE 0.9% 1,000 ML IV STA (09:22)
--- NOTE | 2021-06-13 09:23 | ED ---
General Adult HPI - General Chief complaint: Syncope Stated complaint: Back pain, syncope & Fall Time Seen by Provider: 06/13/21 09:05 Source: patient, EMS Mode of arrival: EMS - History of Present Illness Initial comments: Dictation was produced using [email or web address] dictation software. please excuse any grammatical, word or spelling errors. Chief Complaint: 66-year-old female no history of cardiac disease presents to the ER after syncopal episode History of Present Illness: 66-year-old female presents to the emergency department after syncopal episode today. Patient's symptoms began on Monday for she started to have signs and symptoms of a viral URI versus sinusitis. She took some sinus medicine and felt fine most of the day Monday. Late Monday she started to have low-grade temperatures again took more medicine. This more she woke up at 5:30 AM per her usual routine or she gets her cat food and medicine. She went to the fridge rater to grab Medicine also she wakes up on the floor. Patient had episode of syncope in the past from severe hip pain. Patient states she has some back pain. She does complain of some runny nose and scratchy throat. The ROS documented in this emergency department record has been reviewed and confirmed by me. Those systems with pertinent positive or negative responses have been documented in the HPI. All other systems are other negative and/or noncontributory. PHYSICAL EXAM: General Impression: Alert and oriented x3, not in acute distress HEENT: Normocephalic atraumatic, extra-ocular movements intact, pupils equal and reactive to light bilaterally, mucous membranes moist. Cardiovascular: Heart regular rate and rhythm Chest: Able to complete full sentences, no retractions, no tachypnea Abdomen: abdomen soft, non-tender, non-distended, no organomegaly Musculoskeletal: Pulses present and equal in all extremities, no peripheral edema Motor: no focal deficits noted Neurological: CN II-XII grossly intact, no focal motor or sensory deficits noted Skin: Intact with no visualized rashes Psych: Normal affect and mood ED course: 66-year-old female presents to the emergency department for syncopal episode. Patient also reports features of respiratory infectious symptoms. Signs upon arrival are within acceptable limits. EKG does not show any cardiac causes of syncope. Laboratory evaluation obtained. CBC, metabolic panel is unremarkable per for panel viral PCR is positive for COVID-19. Thoracic x-ray and lumbar spine x-ray shows wedge deformity of T12 without posterior wall displacement. Patient has any point tenderness directly on T12 vertebral. Computed tomography scan of the head and C-spine shows no acute processes. Computed tomography scan of the head and C-spine shows no acute processes. Patient has been having URI symptoms since Monday. She's been 2-3 days symptomatic. She is above the age of 65. She is not vaccinated for COVID-19. Patient agreeable for monoclonal antibody infusion. Patient given infusion observed in emergency department for one hour after infusion with no issues. Patient to be discharge. EKG interpretation: Ventricular rate 87, sinus rhythm,. 156, Q 71, QTC 411. No MD prolongation, no QTC prolongation, no ST or T-wave changes noted. Overall, this EKG is unremarkable - Related Data Home Medications Medication Instructions Recorded Confirmed Levothyroxine Sodium [Synthroid] 88 mcg PO DAILY 06/13/17 10/13/20 Montelukast [Singulair] 10 mg PO DAILY 06/13/17 10/13/20 Ascorbic Acid [Vitamin C] 500 mg PO DAILY 08/14/18 10/13/20 Cholecalciferol (Vitamin D3) 2,000 unit PO DAILY 08/14/18 10/13/20 [Vitamin D3] Multivitamin [Multivitamins Adult 1 each PO DAILY 08/14/18 10/13/20 Gummies] Omeprazole 40 mg PO DAILY 10/13/20 10/13/20 Zinc/Magnesium/Calcium 1 tab PO DAILY 10/13/20 10/13/20 Previous Rx's Medication Instructions Recorded Ibuprofen [Motrin] 600 mg PO Q6HR PRN #20 tab 06/28/19 Allergies Allergy/AdvReac Type Severity Reaction Status Date / Time Sulfa (Sulfonamide Allergy Rash/Hives Verified 10/13/20 12:49 Antibiotics) Review of Systems ROS Statement: Those systems with pertinent positive or pertinent negative responses have been documented in the HPI. ROS Other: All systems not noted in ROS Statement are negative. Past Medical History Past Medical History: Asthma, GERD/Reflux, Thyroid Disorder Additional Past Medical History / Comment(s): HYPOTHYROID status post radioactive iodine treatment for hyperthyroidism. Seasonal allergies. Ex ercise-induced asthma. Osteoporosis and used Fosamax from [id number]. 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 She also has a history of perianal herpes confirmed in 2012. History of Any Multi-Drug Resistant Organisms: None Reported Past Surgical History: Breast Surgery, Section, Tubal Ligation Additional Past Surgical History / Comment(s): Bilateral breast augmentation. NASAL surgery, colonoscopy 2019(next after 5yr). Past Psychological History: No Psychological Hx Reported Smoking Status: Never smoker Past Alcohol Use History: Occasional Past Drug Use History: None Reported - Past Family History Aunt Family Medical History: Cancer Additional Family Medical History / Comment(s): Cancer of the vulva. Course Vital Signs 06/13/21 06/13/21 06/13/21 09:02 09:10 10:10 Temperature 98.7 F 98.7 F Pulse Rate 86 86 Respiratory 18 16 Rate Blood Pressure 125/80 126/76 O2 Sat by Pulse 95 94 L Oximetry Medical Decision Making - Lab Data Result diagrams: 06/13/21 09:36 06/13/21 09:36 Lab Results 06/13/21 06/13/21 06/13/21 Range/Units 09:36 09:36 09:36 WBC 6.3 (3.8-10.6) k/uL RBC 3.98 (3.80-5.40) m/uL Hgb 12.4 (11.4-16.0) gm/dL Hct 37.5 (34.0-46.0) % MCV 94.1 (80.0-100.0) fL MCH 31.2 (25.0-35.0) pg MCHC 33.2 (31.0-37.0) g/dL RDW 13.1 (11.5-15.5) % Plt Count 200 (150-450) k/uL MPV 7.8 Neutrophils % 83 % Lymphocytes % 10 % Monocytes % 5 % Eosinophils % 0 % Basophils % 0 % Neutrophils # 5.3 (1.3-7.7) k/uL Lymphocytes # 0.7 L (1.0-4.8) k/uL Monocytes # 0.3 (0-1.0) k/uL Eosinophils # 0.0 (0-0.7) k/uL Basophils # 0.0 (0-0.2) k/uL Sodium 137 (137-145) mmol/L Potassium 4.1 (3.5-5.1) mmol/L Chloride 105 (98-107) mmol/L Carbon Dioxide 23 (22-30) mmol/L Anion Gap 9 mmol/L BUN 16 (7-17) mg/dL Creatinine 0.76 (0.52-1.04) mg/dL Est GFR (CKD-EPI)AfAm >90 (>60 ml/min/1.73 sqM) Est GFR (CKD-EPI)NonAf 82 (>60 ml/min/1.73 sqM) Glucose 109 H (74-99) mg/dL Calcium 8.7 (8.4-10.2) mg/dL Magnesium 1.9 (1.6-2.3) mg/dL Influenza Type A (PCR) Not Detected (Not Detectd) Influenza Type B (PCR) Not Detected (Not Detectd) RSV (PCR) Not Detected (Not Detectd) SARS-CoV-2 (PCR) Detected A (Not Detectd) Disposition Clinical Impression: COVID-19, Syncope Disposition: HOME SELF-CARE Condition: Fair Instructions (If sedation given, give patient instructions): Coronavirus Disease 2019 (COVID-19) Is patient prescribed a controlled substance at d/c from ED?: No Referrals: Yung Sears DO [Primary Care Provider] - 1-2 days
[2021-06-13 10:00] LABS: African American GFR (CKD) >90 (>60 ml/min/1.73 sqM); Anion Gap 9 mmol/L; Blood Urea Nitrogen 16 mg/dL (7-17); Calcium 8.7 mg/dL (8.4-10.2); Carbon Dioxide 23 mmol/L (22-30); Chloride 105 mmol/L (98-107); Glucose 109 mg/dL (74-99); Magnesium 1.9 mg/dL (1.6-2.3); Non-African American GFR(CKD) 82 (>60 ml/min/1.73 sqM); Potassium 4.1 mmol/L (3.5-5.1); Sodium 137 mmol/L (137-145)
--- NOTE | 2021-06-13 10:20 | CT ---
EXAMINATION TYPE: CT brain becca wo con DATE OF EXAM: 06/13/2021 COMPARISON: None HISTORY: syncope and fall CT DLP: 1371 mGycm, Automated exposure control for dose reduction was used. CONTRAST: Patient injected with 0 mL of Isovue 300. CT of the brain is performed utilizing 3 mm thick sections through the posterior fossa and 3 mm thick sections through the remaining calvarium. Study is performed within 24 hours of arrival to the hospital. No abnormal hyperdensity is present to suggest an acute intracranial hemorrhage. No mass lesion is evident. No acute infarcts are evident. Ventricles and sulci are appropriate for the patient age. Paranasal sinuses and mastoid air cells within the [id number] are clear. IMPRESSIONS: 1. No acute intracranial process. MRI can be performed as clinically indicated. CT cervical spine. COMPARISON: None CT of the cervical spine is performed in the axial plane at 2 mm thick sections. Reconstructed image s in the coronal, and sagittal plane are reviewed on the computer. No acute fractures are evident. Vertebral body alignment is normal. There is diffuse disc space narrowing. Vertebral body heights are preserved. No spinal canal stenosis is evident. Vertebral joint hypertrophy is present causing mild scattered foraminal narrowing. IMPRESSIONS: 1. No mild degenerative changes within the disks and uncovertebral joints with disc space narrowing a nd some foraminal narrowing. 2. No acute osseous abnormality.
[2021-06-13 10:34] LABS: Basophils % (A) 0 %; Eosinophils % (A) 0 %; HCT 37.5 % (34.0-46.0); HGB 12.4 gm/dL (11.4-16.0); Lymphocytes # (A) 0.7 k/uL (1.0-4.8); Lymphocytes % (A) 10 %; MCH 31.2 pg (25.0-35.0); MCHC 33.2 g/dL (31.0-37.0); MCV 94.1 fL (80.0-100.0); Mean Platelet Volume 7.8; Monocytes # (A) 0.3 k/uL (0-1.0); Monocytes % (A) 5 %; Neutrophils # (A) 5.3 k/uL (1.3-7.7); Neutrophils % (A) 83 %; Platelet Count 200 k/uL (150-450); RBC 3.98 m/uL (3.80-5.40); RDW 13.1 % (11.5-15.5); WBC 6.3 k/uL (3.8-10.6)
[2021-06-13] MEDS ORDERED: MORPHINE SULFATE 4 MG/ML SYRINGE IV STA (10:39)
--- NOTE | 2021-06-13 10:40 | XR ---
EXAMINATION TYPE: XR thoracic spine 2V DATE OF EXAM: 06/13/2021 COMPARISON: 08/26/2019 lumbar spine HISTORY: Pain fall TECHNIQUE: Three-view thoracic spine FINDINGS: There are 12 thoracic type vertebral bodies. Pedicles are intact. Disc heights are preserve d. There is a wedge deformity of the T10 level. Remaining vertebral body heights are preserved. This is not clearly evident on the 08/26/2019 comparison. IMPRESSION: 1. Indeterminate age wedge deformity of T12 without posterior wall displacement. This is a new findi ng from 2019.
--- NOTE | 2021-06-13 10:41 | XR ---
EXAMINATION TYPE: XR lumbar spine 2 or 3V DATE OF EXAM: 06/13/2021 COMPARISON: 08/26/2019 HISTORY: Fall, pain TECHNIQUE: 3 view lumbar spine FINDINGS: There are 5 lumbar-type vertebral bodies. Pedicles are intact. Disc heights are preserved. Vertebral body heights are preserved. There is a minimal grade 1 spondylolisthesis of L4 anteriorly o n L5. IMPRESSION: 1. Minimal grade 1 spondylolisthesis of L4 on L5 which is a change. 2. Lumbar spine otherwise appears unremarkable. Follow-up can be performed as clinically indicated.
[2021-06-13] MEDS ORDERED: BEBTELOVIMAB (EUA) 175 MG/2 ML VIAL IV ONE (11:30)
[2021-06-13 12:40] VITALS: BP 116/80; PULSE 87; RESP 14; TEMP 98.6
== END 2021-06-13 12:44 | disposition home or self-care (01) ==
LOC: EC 09:01
DX: U07.1 COVID-19 (principal); R55 Syncope and collapse; J45.909 Unspecified asthma, uncomplicated; K21.9 Gastro-esophageal reflux disease without esophagitis; E03.9 Hypothyroidism, unspecified; Z79.899 Other long term (current) drug therapy; Z88.2 Allergy status to sulfonamides; Z79.890 Hormone replacement therapy
CPT/HCPCS: 36415; 93005; 80048; 83735; 85025; 87636; 72070; 72100; 72125; 70450; 99284; 96374; J2270; Q0222

== ENCOUNTER → 2021-11-30 | Outpatient (CLI) | payer BC ==
[2021-11-30 09:52] VITALS: BP 130/84; PULSE 80; RESP 17; TEMP 98.4
--- NOTE | 2021-11-30 12:12 | P.HPOB ---
History of Present Illness H&P Date: 11/30/21 Chief Complaint: The patient is here for her routine gynecologic exam and ma mmogram. This is a 66-year-old with an LMP of 2008. The patient states she has not been sexually active for quite some time because it was very dry and uncomfortable to have intercourse. She has not tried estrogen vaginal cream, but thinks she is willing to try it now. She has known vaginal prolapse in the form of a small cystocele, rectocele, and uterine prolapse. She denies anything protruding from the vaginal opening. She does have occasional urinary leakage when she rides her horse. Review of Systems She is getting about 4 pounds over the past year. Respiratory: She is getting over a sinus infection and was treated with antibiotics. She still has some drainage in the back of her throat that occasionally makes her cough. She denies cardiac or GI problems. She occasionally can get lightheaded if she stands up too quickly. : See HPI. Past Medical History Past Medical History: Asthma, GERD/Reflux, Thyroid Disorder Additional Past Medical History / Comment(s): HYPOTHYROID status post radioactive iodine treatment for hyperthyroidism. Seasonal allergies. Exercise-induced asthma. Vertebral fracture after falling on the corner of the table. Abdominal hernia. Osteoporosis and used Fosamax from [phone]. 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 She also has a history of perianal herpes confirmed in 2012. History of Any Multi-Drug Resistant Organisms: None Reported Past Surgical History: Breast Surgery, Section, Tubal Ligation Additional Past Surgical History / Comment(s): Bilateral breast augmentation. NASAL surgery, colonoscopy 2019(next after 5yr). Past Psychological History: No Psychological Hx Reported Smoking Status: Never smoker Past Alcohol Use History: Occasional (0-3 drinks per day) Past Drug Use History: None Reported Additional History: She is and this is her second marriage. She retired in 2021. 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 - Past Family History Aunt Family Medical History: Cancer Additional Family Medical History / Comment(s): Cancer of the vulva. Medications and Allergies Home Medications Medication Instructions Recorded Confirmed Type Levothyroxine Sodium [Synthroid] 88 mcg PO DAILY 06/13/17 11/30/21 History Montelukast [Singulair] 10 mg PO DAILY 06/13/17 11/30/21 History Ascorbic Acid [Vitamin C] 500 mg PO DAILY 08/14/18 11/30/21 History Cholecalciferol (Vitamin D3) 2,000 unit PO DAILY 08/14/18 11/30/21 History [Vitamin D3] Multivitamin [Multivitamins Adult 1 each PO DAILY 08/14/18 11/30/21 History Gummies] Ibuprofen [Motrin] 600 mg PO Q6HR PRN #20 tab 06/28/19 11/30/21 Rx Omeprazole 40 mg PO DAILY 10/13/20 11/30/21 History Zinc/Magnesium/Calcium 1 tab PO DAILY 10/13/20 11/30/21 History Allergies Allergy/AdvReac Type Severity Reaction Status Date / Time Sulfa (Sulfonamide Allergy Rash/Hives Verified 11/30/21 09:42 Antibiotics) Exam Vital Signs Temp Pulse Resp BP Pulse Ox 11/30/21 09:48 98.4 F 80 17 130/84 97 Intake and Output 11/29/21 11/30/21 11/30/21 22:59 06:59 14:59 Other: Weight 61.689 kg Height 5 feet 5 inches, weight 136 pounds, BMI 22.6. This is a well-developed well-nourished white female who is alert and oriented times 3 in no acute distress. HEENT: Within normal limits. NECK: Supple without mass or thyromegaly. CHEST AND LUNGS: Clear to auscultation. HEART: Regular rate and rhythm. BREASTS: Are without mass or discharge. Breasts are consistent with bilateral implants. AXILLARY EXAM: Negative for adenopathy. BACK: Negative for CVA tenderness. ABDOMEN: Soft, nontender, without palpable masses. PELVIC EXAM: Normal external genitalia with mild to moderate atrophy. Cervix and vagina appear normal with mild to moderate atrophy. There is no mucosal ulcerations or unusual thickening. There is no unusual discharge. There is a stable grade 2 rectocele, grade 1-2 cystocele and grade 1-2 uterine prolapse. The uterus is midposition, nongravid size and nontender. There are no palpable adnexal masses or tenderness. RECTAL EXAM: Rectovaginal exam is negative for mass or tenderness and is negative for occult blood. EXTREMITIES: Nontender. IMPRESSION: 1. 66-year-old menopausal female with stable grade 1-2 cystocele, grade 1-2 uterine prolapse, and grade 2 rectocele. 2. Dyspareunia secondary to genital atrophy and dryness. 3. History of osteoporosis status post 5 years use of Fosamax. 4. History of perianal HSV with rare recurrences. PLAN: 1. Pap smears have been discontinued. 2. Self breast awareness was discussed with the patient. We have also discussed symptoms associated with inflammatory breast cancer. 3. Screening mammogram was done today. 4. Trial of Premarin vaginal cream, 1 g into the vagina 2 times weekly. The electronic prescription will be sent to [facility] in [place]. 5. Osteoporosis management was discussed. I have stressed the importance of adequate calcium, vitamin D and regular exercise. Her last bone density test was done on 09/10/2018. I have recommended repeating the bone density testing. The order slip will be given to the patient. 6. She has not received a Covid vaccination. She has had Covid in the past. She is aware of the recommendation for Covid vaccinations. 7. We will continue with conservative management with regards to her vaginal prolapse. She was instructed to avoid holding urine or stool longer than necessary. We have also discussed negative Valsalva and kegal exercises. We have discussed the option of a referral to a gynecologic urologist such as Dr. Lencho Pena. She will let me know if she wants a referral for this. 8. She was advised to return in one year for her annual well woman exam and as needed.
--- NOTE | 2021-12-01 10:16 | MM ---
Reason for Exam: Hx of breast augmentation, asymptomatic. Last mammogram was performed 1 year(s) and 2 month(s) ago. Patient History: Menarche at age 11. First Full-Term at age 17. Postmenopausal. Estrogen, starting at age 56 for 1 year. Progesterone, starting at age 56 for 1 year. 06/13/2006, Lumpectomy on the Right side. 06/08/2000, Benign Excisional Biopsy on the left side. 2003, Bilateral Implants. 01/1996, Bilateral Implants. Risk Values: Marlene 5 year model risk: 1.4%. NCI Lifetime model risk: 5.0%. Prior Study Comparison: 08/14/2018 Bilateral Screening Mammogram, [facility]. 10/10/2019 Bilateral Screening Mammogram, [facility]. 10/13/2020 Bilateral Screening Mammogram, [facility]. Tissue Density: The breast tissue is heterogeneously dense. This may lower the sensitivity of mammography. Findings: Analyzed By CAD. There is no suspicious group of microcalcifications or new suspicious mass in either breast. Bilateral breast prosthesis. Calcification on left prosthesis. No significant change from prior exams. Overall Assessment: Benign, BI-RAD 2 Management: Screening Mammogram of both breasts in 1 year. A clinical breast exam by your physician is recommended on an annual basis and results should be correlated with mammographic findings. Electronically signed and approved by: Kam Zuluaga D.O.
== END | disposition home or self-care (01) ==
LOC: RADMAMWWP 09:09
PROVIDERS: ATTEND Obstetrics & Gynecology
DX: Z12.31 Encounter for screening mammogram for malignant neoplasm of breast (principal); N81.4 Uterovaginal prolapse, unspecified
CPT/HCPCS: 77063; 77067

== ENCOUNTER → 2022-08-03 | Outpatient (CLI) | payer BC ==
[2022-08-03 08:11] VITALS: BP 152/88; PULSE 72; RESP 17; TEMP 98
--- NOTE | 2022-08-03 08:45 | P.PN ---
Progress Note - Text Progress Note Date: 08/03/22 Chief Complaint: Intermittent left vulvar itching for several months. HPI: This is a 67-year-old with an LMP of 2008. The patient states she has been having intermittent left vulvar itching for several months. About 1 month ago she developed the itching on the left vulva and then noticed an ulcer in that area that lasted about 1 week. It had some redness around it and then went away. She does have a history of HSV type II, but has not had an outbreak for many years. She also has occasional right groin achiness that she attributes to the small hernia which she believes she has had for many years. ROS: She denies respiratory, cardiac, or GI problems. : Often has a slow urin debbie stream which she attributes to her known cystocele. She also has occasional slight leakage. PE: Blood pressure: 152/88, Height: 5 feet 4 inches, Weight: 133 pounds, BMI 22.1, Temperature: 98.0, Pulse: 72. Pulse oximeter 99%. This is a well developed, well nourished, white female who is alert and orientedx3, in no acute distress. Abdomen: Soft, nontender, without palpable masses. No significant masses noted in the right groin area with Valsalva. External genitalia: There is generalized mild erythema without significant pallor around the bilateral labia majora extending to the perineum and slightly toward the perianal area. There is an area of thickened skin at the mid-portion of the left labia majora without ulceration. There is also no pallor in this area and this appears benign. The cervix and vagina reveal stable grade 1-2 cystocele, grade 1-2 uterine prolapse and grade 1-2 rectocele. There is a small amount of creamy whitish discharge without odor. There is no cervical motion tenderness. Uterus is midposition and nongravid size and nontender. There are no palpable adnexal masses or tenderness. Impression: 1. 67-year-old menopausal female with chronic vulvar irritation greater on the left side with evidence of mild generalized inflammation. Differential diagnosis will include early lichen sclerosus of the vulva, nonspecific chronic vulvar irritation, diandra vaginitis, and bacterial vaginosis. 2. Probable genital HSV outbreak about 1 month ago which has resolved. History of genital HSV with rare outbreaks. 3. Stable grade 1-2 cystocele, grade 1-2 uterine prolapse, and grade 1-2 rectocele. Plan: 1. Kenalog 0.1% cream twice a day as needed for vulvar itching. She will also use a protective layer of petroleum jelly or Aquaphor once daily. She will try to avoid over washing, scratching, or rubbing. The electronic prescription for Kenalog cream will be sent to [facility] in [place]. 2. Valtrex 500 mg by mouth twice a day 3 days if she does have herpes symptoms such as the blister or ulceration. The electronic prescription will also be sent to [facility] in [place]. 3. Negative Valsalva exercises were discussed which she can try if she is noticing symptoms from her cystocele or vaginal prolapse or groin hernia. She can also try this prior to urinating 4. She will return in approximately 4 months for her annual examination and for reevaluation. She will also call if problems. Time spent with the patient: 25 minutes
--- NOTE | 2022-08-06 10:48 | P.PN ---
Progress Note - Text Progress Note Date: 08/06/22 Affirm vaginitis panel done on 08/03/22 was positive for Gardnerella and negative for Lauren and Trichomonas. The patient was notified by phone on 08/06/22. Impression: Bacterial vaginosis with vulvar irritation and discharge on exam. Plan: metronidazole 500mg by mouth BID for 7 days. The electronic prescription was sent to [facility] in [place]. She will still use the Kenalog cream as directed. Call if problems or if symptoms are not improving.
== END ==
LOC: WWCWWP 07:55
PROVIDERS: ATTEND Obstetrics & Gynecology
DX: N95.1 Menopausal and female climacteric states (principal); N76.89 Other specified inflammation of vagina and vulva; A60.09 Herpesviral infection of other urogenital tract; N81.10 Cystocele, unspecified; B96.89 Other specified bacterial agents as the cause of diseases classified elsewhere; B37.32 Chronic candidiasis of vulva and vagina; L90.0 Lichen sclerosus et atrophicus; Z88.2 Allergy status to sulfonamides

== ENCOUNTER → 2022-12-19 | Outpatient (CLI) | payer BC ==
--- NOTE | 2022-12-19 18:28 | CT ---
EXAMINATION TYPE: CT shoulder RT wo con DATE OF EXAM: 12/19/2022 COMPARISON: HISTORY: Pt was bucked off of a horse, pt fractured RT shoulder and LT wrist. CT DLP: 467 mGycm Automated exposure control for dose reduction was used. Contrast: None Technique: Axial images 3 mm thick sections. Reconstructed images in the coronal and sagittal planes . FINDINGS: Rib fractures are present along the lateral right fourth and fifth ribs. Some plastic deformity of th e posterior lateral fourth rib may be present. No pneumothorax is evident. There is an avulsion from the left humerus head. This is displaced posterior to the humeral head. Hum eral head articulates with the glenoid. Scapula appears intact. Grass 3-D reconstructed images are pe rformed by the technologist on a separate computer. IMPRESSION: 1. AN AVULSION FROM THE GREATER TUBEROSITY HUMERUS THE FRACTURE FRAGMENT WHICH IS ROTATED POSTERIOR T O THE HUMERAL HEAD. 2. FOURTH AND FIFTH LATERAL RIB FRACTURES.
--- NOTE | 2022-12-19 18:42 | CT ---
EXAMINATION TYPE: CT wrist LT wo con DATE OF EXAM: 12/19/2022 COMPARISON: None HISTORY: Pt was bucked off of a horse, pt fractured RT shoulder and LT wrist. CT DLP: 250 mGycm Automated exposure control for dose reduction was used. Contrast: None Technique: Axial images 3 mm thick sections. Reconstructed images in the coronal and sagittal plane a re reviewed. Images were obtained through plaster splint. FINDINGS: There is an impacted comminuted fracture of the distal radius with extension of fracture line to the articular surface. No additional fractures are evident. Scapholunate space appears preserved. Carpal rows otherwise appe ar intact. IMPRESSION: 1. COMMINUTED FRACTURE OF THE DISTAL METAPHYSEAL RADIUS WITH EXTENSION INTO THE ARTICULAR SURFACE.
== END | disposition home or self-care (01) ==
LOC: RADCTMAIN 16:32
PROVIDERS: ATTEND Orthopaedic Surgery
DX: S52.552D Other extraarticular fracture of lower end of left radius, subsequent encounter for closed fracture with routine healing (principal); S42.251D Displaced fracture of greater tuberosity of right humerus, subsequent encounter for fracture with routine healing; S22.41XD Multiple fractures of ribs, right side, subsequent encounter for fracture with routine healing; X58.XXXD Exposure to other specified factors, subsequent encounter

== ENCOUNTER → 2023-03-07 | Outpatient (CLI) | payer BC ==
[2023-03-07 10:48] VITALS: BP 111/81; PULSE 94; RESP 17; TEMP 97.9
--- NOTE | 2023-03-07 11:24 | P.HPOB ---
History of Present Illness H&P Date: 03/07/23 Chief Complaint: The patient is here for her routine gynecologic exam This is a 67-year-old with an LMP of 2009. A patient states the vulvar itching has improved from when she was seen on 08/03/2022. She now infrequent uses the Kenalog cream just as needed. She denies any postmenopausal bleeding and is otherwise without gynecologic complaints. She denies any genital blisters or recent outbreaks. Review of Systems She is lost about 3 pounds over the past year. She denies respiratory or cardiac problems. GI: This morning she had a hard bowel movement and feels that it affected her hemorrhoids which led to some blood when wiping after the bowel movement today. Past Medical History Past Medical History: Asthma, GERD/Reflux, Thyroid Disorder Additional Past Medical History / Comment(s): HYPOTHYROID status post radioactive iodine treatment for hyperthyroidism. Seasonal allergies. Exercise-induced asthma. Vertebral fracture after falling on the corner of the table. Abdominal hernia. Osteoporosis and used Fosamax from [id number]. 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 She also has a history of perianal herpes confirmed in 2012. History of Any Multi-Drug Resistant Organisms: None Reported Past Surgical History: Breast Surgery, Section, Tubal Ligation Additional Past Surgical History / Comment(s): Bilateral breast augmentation. NASAL surgery, colonoscopy 2019(next after 5yr). Right shoulder and left wrist surgery in 2022 after falling from a horse. Past Psychological History: No Psychological Hx Reported Smoking Status: Never smoker Past Alcohol Use History: Occasional (Four alcohol-containing drinks per week.) Past Drug Use History: None Reported Additional History: She is and this is her second marriage. She is not sexually active. She retired in 2021. - Past Family History Aunt Family Medical History: Cancer Additional Family Medical History / Comment(s): Cancer of the vulva. Medications and Allergies Home Medications Medication Instructions Recorded Confirmed Type Levothyroxine Sodium [Synthroid] 88 mcg PO DAILY 06/13/17 03/07/23 History Montelukast [Singulair] 10 mg PO DAILY 06/13/17 03/07/23 History Ascorbic Acid [Vitamin C] 500 mg PO DAILY 08/14/18 03/07/23 History Cholecalciferol (Vitamin D3) 2,000 unit PO DAILY 08/14/18 03/07/23 History [Vitamin D3] Multivitamin [Multivitamins Adult 1 each PO DAILY 08/14/18 03/07/23 History Gummies] Ibuprofen [Motrin] 600 mg PO Q6HR PRN #20 tab 06/28/19 03/07/23 Rx Omeprazole 40 mg PO DAILY 10/13/20 03/07/23 History Zinc/Magnesium/Calcium 1 tab PO DAILY 10/13/20 03/07/23 History Triamcinolone 0.1% Cream [Kenalog 1 applicatio TOPICAL BID PRN #30 gm 08/03/22 03/07/23 Rx 0.1% Cream] valACYclovir HCL [Valtrex] 500 mg PO BID #6 tab 08/03/22 03/07/23 Rx Cephalexin [Keflex] 500 mg PO DAILY 03/07/23 03/07/23 History Potassium Citrate [Potassium 10 meq PO DAILY 03/07/23 03/07/23 History Citrate ER] Vitamin D3/Vitamin K2 (Mk4) 1 tab PO DAILY 03/07/23 03/07/23 History [Vitamin K2 Plus D3 Tablet] Allergies Allergy/AdvReac Type Severity Reaction Status Date / Time Sulfa (Sulfonamide Allergy Rash/Hives Verified 03/07/23 10:27 Antibiotics) Exam Vital Signs Temp Pulse Resp BP Pulse Ox 03/07/23 10:41 97.9 F 94 17 111/81 98 Intake and Output 03/06/23 03/07/23 03/07/23 22:59 06:59 14:59 Other: Weight 60.328 kg Height 5 feet 5 inches, weight 133 pounds, BMI 22.1. This is a well-developed well-nourished white female who is alert and oriented times 3 in no acute distress. HEENT: Within normal limits. NECK: Supple without mass or thyromegaly. CHEST AND LUNGS: Clear to auscultation. HEART: Regular rate and rhythm. BREASTS: Are without mass or discharge. AXILLARY EXAM: Negative for adenopathy. BACK: Negative for CVA tenderness. ABDOMEN: Soft, nontender, without palpable masses. PELVIC EXAM: Normal external genitalia with moderate atrophy. Cervix and vagina appear normal with moderate atrophy. There is no unusual discharge. There is a stable grade 1-2 cystocele and, grade 1-2 rectocele and grade 1-2 uterine prolapse. The vaginal mucosa is without ulceration, excoriation, or thickening. The uterus is midposition, nongravid size and nontender. There are no palpable adnexal masses or tenderness. RECTAL EXAM: Rectovaginal exam is negative for mass or tenderness and is positive for occult blood. EXTREMITIES: Nontender. There is limited mobility at the right shoulder consistent with her shoulder injury surgery. She is currently undergoing physical therapy for this. IMPRESSION: 1. 67-year-old menopausal female with stable asymptomatic grade 1-2 cystocele, rectocele, and uterine prolapse. 2. History of osteoporosis status post 5 years use of Fosamax discontinued in 2019 3. Infrequent vulvar itching improved with Kenalog cream. 4. Heme positive stool from the rectal exam today which is consistent with the blood noted after her hard bowel movement today which she attributes to hemorrhoids. PLAN: 1. Pap smears have been discontinued. 2. Self breast awareness was discussed with the patient. We have also discussed symptoms associated with inflammatory breast cancer. 3. Screening mammogram is due and the order slip was given to the patient for this. 4. Osteoporosis management was discussed. I have stressed the importance of adequate calcium, vitamin D and regular exercise. Recommended amounts of calcium and vitamin D were also discussed. I have recommended that we repeat the bone density test next year at her well woman examination. Her last one was done on 12/16/2021. 5. I have recommended that she repeat the fecal occult blood testing and a can't was given to her for this. She will keep her bowel movements soft and weight until her hemorrhoid symptoms have resolved. She will bring the test cards into the lab for testing and the order slip was given to the patient for this. 6. She was advised to return in one year for her annual well woman exam.
== END ==
LOC: WWCWWP 10:23
PROVIDERS: ATTEND Obstetrics & Gynecology
DX: N81.4 Uterovaginal prolapse, unspecified (principal); M81.0 Age-related osteoporosis without current pathological fracture; L29.2 Pruritus vulvae; K21.9 Gastro-esophageal reflux disease without esophagitis; E07.9 Disorder of thyroid, unspecified; J45.909 Unspecified asthma, uncomplicated; R19.5 Other fecal abnormalities; R19.4 Change in bowel habit; K64.9 Unspecified hemorrhoids; Z78.0 Asymptomatic menopausal state; Z79.890 Hormone replacement therapy; Z88.2 Allergy status to sulfonamides

== ENCOUNTER → 2023-03-20 | Outpatient (CLI) | payer BC ==
--- NOTE | 2023-03-21 10:39 | MM ---
Reason for Exam: Screening (asymptomatic). Last mammogram was performed 1 year(s) and 4 month(s) ago. Patient History: Menarche at age 11. First Full-Term at age 17. Postmenopausal. Patient has history of breast feeding. Estrogen, starting at age 56 for 1 year. Progesterone, starting at age 56 for 1 year. 06/13/2006, Lumpectomy on the Right side. 06/08/2000, Benign Excisional Biopsy on the left side. 2003, Bilateral Implants. 01/1996, Bilateral Implants. Risk Values: Marlene 5 year model risk: 1.5%. NCI Lifetime model risk: 4.5%. Prior Study Comparison: 06/07/2016 Bilateral Screening Mammogram, [facility]. 06/13/2017 Bilateral Screening Mammogram, [facility]. 08/14/2018 Bilateral Screening Mammogram, [facility]. 10/10/2019 Bilateral Screening Mammogram, [facility] 10/13/2020 Bilateral Screening Mammogram, [facility]. 11/30/2021 Bilateral MG 3D screen mammo imp/cad., [facility]. Tissue Density: The breast tissue is heterogeneously dense. This may lower the sensitivity of mammography. Findings: Analyzed By CAD. There is no suspicious group of microcalcifications or new suspicious mass in either breast. Implants are intact. Overall Assessment: Benign, BI-RAD 2 Management: Screening Mammogram of both breasts in 1 year. . Patient should continue monthly self-breast exams. A clinical breast exam by your physician is recommended on an annual basis. This exam should not preclude additional follow-up of suspicious palpable abnormalities. Note on Marlene scores and lifetime risk: 1. A Marlene score greater than 3% is considered moderate risk. If this is the case, consider specialist referral to assess eligibility for a risk reducing agent. 2. If overall lifetime risk for the development of breast cancer is 20% or higher, the patient may qualify for future screening with alternating mammogram and breast MRI. Electronically signed and approved by: Daljit Ramirez M.D. Radiologis
== END | disposition home or self-care (01) ==
LOC: RADMAMWWP 07:28
PROVIDERS: ATTEND Obstetrics & Gynecology
DX: Z12.31 Encounter for screening mammogram for malignant neoplasm of breast (principal); R19.5 Other fecal abnormalities; Z78.0 Asymptomatic menopausal state
CPT/HCPCS: 77063; 77067; 82272

== ENCOUNTER → 2023-04-27 | Outpatient (CLI) | payer BC ==
--- NOTE | 2023-05-03 11:13 | MR ---
EXAMINATION TYPE: MR shoulder RT wo con DATE OF EXAM: 04/27/2023 COMPARISON: CT scan 12/19/2022 HISTORY: Right shoulder pain due to being kicked off horse and landing on right arm. History of surge ry TECHNIQUE: Multiplanar, multisequence imaging of the right shoulder is performed without contrast. FINDINGS: Rotator Cuff: There is a near complete tear of the supraspinatus and infraspinatus tendons with minimal residual fi bers at the humeral attachment. Subacromial subdeltoid fluid collection. Subscapularis tendon demonstrates increased signal at the insertion compatible with tendinosis and pa rtial tear. There is some atrophic change of the musculature of the rotator cuff. Acromioclavicular Joint: Moderate knee joint arthropathy. There is a small spur extending off the acr omion with mild mass effect upon the supraspinatus tendon. Glenohumeral Joint: There is a small joint effusion. There is elevation of the humeral head relative to glenoid. Glenohumeral ligament is grossly intact. Labrum: The labrum appears grossly intact given limitation of non-arthrogram study. Biceps Tendon: Bicipital tendon is situated in the bicipital groove. There is findings compatible wit h moderate tendinosis. Bone marrow signal: There appears to be postsurgical change involving the right humerus with findings compatible with previous fracture. There is nonspecific marrow edema within the humeral head flatten ing humeral head likely bases trauma. Other: No additional significant abnormality is appreciated. IMPRESSION: 1. Near complete thickness tear supraspinatus and infraspinatus tendons with minimal residual fibers at the humeral attachment. 2. Tendinosis insertion subscapularis tendon. 3 bicipital tendinosis. 4 postsurgical change and evidence of remote trauma with residual nonspecific narrow edema humeral he ad.
== END | disposition home or self-care (01) ==
LOC: RADMRIMAIN 08:05
PROVIDERS: ATTEND Orthopaedic Surgery
DX: M75.111 Incomplete rotator cuff tear or rupture of right shoulder, not specified as traumatic (principal); M67.813 Other specified disorders of tendon, right shoulder; Z98.890 Other specified postprocedural states

== ENCOUNTER → 2023-08-03 | Outpatient (CLI) | payer BC ==
--- NOTE | 2023-08-03 08:16 | MM ---
Reason for Exam: Clinical finding. Last screening mammogram was performed 4 month(s) ago. Patient History: Menarche at age 11. First Full-Term at age 17. Postmenopausal. Patient has history of breast feeding. Estrogen, starting at age 56 for 1 year. Progesterone, starting at age 56 for 1 year. 06/13/2006, Lumpectomy on the Right side. 06/08/2000, Benign Excisional Biopsy on the left side. 2003, Bilateral Implants. 01/1996, Bilateral Implants. Risk Values: Marlene 5 year model risk: 1.5%. NCI Lifetime model risk: 4.5%. Prior Study Comparison: 10/13/2020 Bilateral Screening Mammogram, [facility]. 11/30/2021 Bilateral MG 3D screen mammo imp/cad., [facility]. 03/20/2023 Bilateral MG 3D screen mammo imp/cad., [facility]. Tissue Density: Right: There are scattered areas of fibroglandular density. Findings: Analyzed By CAD. The silicone implant is noted. There are several nodular densities adjacent to the implant for leak. Ultrasound is recommended. No spiculated mass. No suspicious calcifications identified. Overall Assessment: Incomplete: need additional imaging evaluation, BI-RAD 0 Management: Diagnostic Breast Ultrasound of the right breast. . Results were given to the patient verbally at the time of exam. Patient should continue monthly self-breast exams. A clinical breast exam by your physician is recommended on an annual basis. This exam should not preclude additional follow-up of suspicious palpable abnormalities. Note on Marlene scores and lifetime risk: 1. A Marlene score greater than 3% is considered moderate risk. If this is the case, consider specialist referral to assess eligibility for a risk reducing agent. 2. If overall lifetime risk for the development of breast cancer is 20% or higher, the patient may qualify for future screening with alternating mammogram and breast MRI. Electronically signed and approved by: Daljit Ramirez M.D. Radiologis
--- NOTE | 2023-08-03 08:16 | USB ---
Reason for Exam: Clinical finding. Patient History: Menarche at age 11. First Full-Term at age 17. Postmenopausal. Patient has history of breast feeding. Estrogen, starting at age 56 for 1 year. Progesterone, starting at age 56 for 1 year. 06/13/2006, Lumpectomy on the Right side. 06/08/2000, Benign Excisional Biopsy on the left side. 2003, Bilateral Implants. 01/1996, Bilateral Implants. Risk Values: Marlene 5 year model risk: 1.5%. NCI Lifetime model risk: 4.5%. Technique: Method: Targeted. Prior Study Comparison: 10/13/2020 Bilateral Screening Mammogram, [facility]. 11/30/2021 Bilateral MG 3D screen mammo imp/cad., [facility]. 03/20/2023 Bilateral MG 3D screen mammo imp/cad., [facility]. Findings: The area of palpable concern of the right breast, the axilla of the right breast and the retroareolar of the right breast were scanned. Several hyperechoic areas are noted measuring up to 1.6 cm at the clinical site of concern right 8:00 position suspicious for free silicone. MRI of the breasts is recommended to evaluate for silicone leak.. No suspicious appearing masses identified within the imaged field. Overall Assessment: Incomplete: need additional imaging evaluation, BI-RAD 0 Management: Diagnostic Breast MRI of both breasts. A clinical breast exam by your physician is recommended on an annual basis and results should be correlated with mammographic findings. This exam should not preclude additional follow-up of suspicious palpable abnormalities. Results were given to the patient verbally at the time of exam. Electronically signed and approved by: Daljit Ramirez M.D. Radiologis
== END | disposition home or self-care (01) ==
LOC: RADMAMWWP 08-02 09:28
PROVIDERS: ATTEND Family Medicine
DX: N63.0 Unspecified lump in unspecified breast (principal); Z78.0 Asymptomatic menopausal state
CPT/HCPCS: 77061; 77065

== ENCOUNTER → 2023-08-29 | Outpatient (CLI) | payer BC ==
--- NOTE | 2023-08-30 08:12 | BMR ---
EXAM DATE: 08/29/2023 EXAM DESCRIPTION: MRI-Breast Bilat (W/O Contrast) INDICATION: Right breast lump COMPARISON: PRIOR MRIs: None available. Correlation to mammograms: 08/03/2023. Correlation to ultrasound: 08/03/2023. CONTRAST: None TECHNIQUE: Multiplanar multisequence MR imaging of both breasts was performed with a dedicated breast coil using the standard breast implant protocol. Not for assessment of malignancy. FINDINGS: General breast composition: There are scattered areas of fibroglandular tissue RIGHT BREAST: Prepectoral silicone implants with findings consistent with intra capsular rupture. There are multiple areas of extracapsular silicone along the right lateral, posterior, and inferior aspect of the implant as demonstrated by mammogram and ultrasound. LEFT BREAST: Prepectoral silicone implant appears intact. LYMPH NODES: There is no evidence of internal mammary or axillary adenopathy. IMPRESSION: RIGHT BREAST: Intra and extracapsular rupture with free silicone in the lateral breast and posterior to the implant. LEFT BREAST: No evidence of implant rupture. OVERALL ASSESSMENT -- BI-RADS 2: Benign MTDD
== END | disposition home or self-care (01) ==
LOC: RADMRIMAIN 08:45
PROVIDERS: ATTEND Family Medicine
DX: T85.43XA Leakage of breast prosthesis and implant, initial encounter (principal); N63.10 Unspecified lump in the right breast, unspecified quadrant
CPT/HCPCS: 77047

== ENCOUNTER → 2024-05-01 | Outpatient (CLI) | payer BC ==
[2024-05-01 09:47] VITALS: BP 129/81; PULSE 87; RESP 16; TEMP 98.3
--- NOTE | 2024-05-01 13:22 | P.HPOB ---
History of Present Illness H&P Date: 05/01/24 Chief Complaint: The patient is here for her routine gynecologic exam. This is a 77-year-old with an LMP of 2008. The patient was treated with Kenalog cream as needed for vulvar irritation. She states this has improved but does have occasional vulvar itching. She denies any postmenopausal bleeding. She states she felt a movable lump in the right breast around July 2023. She did have a diagnostic mammogram and also had an MRI of both breasts at that time. The MRI indicated that there may have been a slight leak of silicone in the lright breast. She states nothing was done about this and the mass went away. Review of Systems The patient's weight has been stable over the last year. She denies respiratory, cardiac, or G.I. problems. Past Medical History Past Medical History: Asthma, GERD/Reflux, Thyroid Disorder Additional Past Medical History / Comment(s): HYPOTHYROID status post radioactive iodine treatment for hyperthyroidism. Seasonal allergies. Exerci se-induced asthma. Vertebral fracture after falling on the corner of the table. Abdominal hernia. Osteoporosis and used Fosamax from [id number]. 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 She also has a history of perianal herpes confirmed in 2012. History of Any Multi-Drug Resistant Organisms: None Reported Past Surgical History: Breast Surgery, Section, Tubal Ligation Additional Past Surgical History / Comment(s): Bilateral breast augmentation. NASAL surgery, colonoscopy 2020(next after 5yr). Right shoulder and left wrist surgery in 2022 after falling from a horse. Past Psychological History: No Psychological Hx Reported Smoking Status: Never smoker Past Alcohol Use History: Occasional (3 drinks per week.) Past Drug Use History: None Reported Additional History: She is and this is her second marriage. She is not sexually active. She retired in 2021. - Past Family History Aunt History Unknown: Yes Family Medical History: Cancer Additional Family Medical History / Comment(s): Cancer of the vulva. Medications and Allergies Home Medications Medication Instructions Recorded Confirmed Type Levothyroxine Sodium [Synthroid] 88 mcg PO DAILY 06/13/17 05/01/24 History Montelukast [Singulair] 10 mg PO DAILY 06/13/17 05/01/24 History Ascorbic Acid [Vitamin C] 500 mg PO DAILY 08/14/18 05/01/24 History Cholecalciferol (Vitamin D3) 2,000 unit PO DAILY 08/14/18 05/01/24 History [Vitamin D3] Multivitamin [Multivitamins Adult 1 each PO DAILY 08/14/18 05/01/24 History Gummies] Ibuprofen [Motrin] 600 mg PO Q6HR PRN #20 tab 06/28/19 05/01/24 Rx Omeprazole 40 mg PO DAILY 10/13/20 05/01/24 History Zinc/Magnesium/Calcium 1 tab PO DAILY 10/13/20 05/01/24 History Triamcinolone 0.1% Cream [Kenalog 1 applicatio TOPICAL BID PRN #30 gm 08/03/22 05/01/24 Rx 0.1% Cream] Potassium Citrate [Potassium 10 meq PO DAILY 03/07/23 05/01/24 History Citrate ER] Vitamin D3/Vitamin K2 (Mk4) 1 tab PO DAILY 03/07/23 05/01/24 History [Vitamin K2 Plus D3 Tablet] Lm/D3/Mag11/Zinc/Financial Advocate/Reginaldo/Bor 1 tab PO DAILY 03/08/23 05/01/24 History [Caltrate 600+D Plus Tablet] B12/Levomefolate Calcium/B-6 1 tab PO DAILY 05/01/24 05/01/24 History [Foltx Tablet] Cranberry Fruit Extract [Cranberry] 200 mg PO DAILY 05/01/24 05/01/24 History Ubidecarenone [Co Q-10] 30 mg PO DAILY 05/01/24 05/01/24 History Allergies Allergy/AdvReac Type Severity Reaction Status Date / Time Sulfa (Sulfonamide Allergy Rash/Hives Verified 03/07/23 10:27 Antibiotics) Exam Vital Signs Temp Pulse Resp BP Pulse Ox 05/01/24 09:37 98.3 F 87 16 129/81 97 Intake and Output 04/30/24 05/01/24 05/01/24 22:59 06:59 14:59 Other: Weight 60.781 kg Height 5 feet 3 inches, weight 134 pounds, BMI 23.7. This is a well-developed well-nourished white female who is alert and oriented times 3 in no acute distress. HEENT: Within normal limits. NECK: Supple without mass or thyromegaly. CHEST AND LUNGS: Clear to auscultation. HEART: Regular rate and rhythm. BREASTS: Are without mass or discharge. Breasts are consistent with bilateral implants. AXILLARY EXAM: Negative for adenopathy. BACK: Negative for CVA tenderness. ABDOMEN: Soft, nontender, without palpable masses. PELVIC EXAM: External genitalia reveals mild to moderate atrophy with mild generalized erythema without significant pallor. Mild erythema extends to the perineal area. Cervix and vagina appear normal with mild to moderate atrophy. There is no unusual discharge. There is a stable grade 1-2 cystocele and grade 1-2 uterine prolapse. There is also a stable grade 2 rectocele. The uterus is midposition, nongravid size and nontender. There are no palpable adnexal masses or tenderness. RECTAL EXAM: Rectovaginal exam is negative for mass or tenderness and is negative for occult blood. EXTREMITIES: Nontender. IMPRESSION: 1. 77-year-old menopausal female with mild chronic vulvitis, possible early lichen sclerosis of the vulva which is symptomatically improved with Kenalog 0.1% cream as needed. 2. Stable asymptomatic grade 1-2 cystocele, grade 1-2 uterine prolapse and grade 2 rectocele. 3. History of osteoporosis status post 5 years use of alendronate. 4. Possible slight silicone leakage from her right implant is seen on the breast MRI from July 2023. PLAN: 1. Pap smears have been discontinued. 2. Self breast awareness was discussed with the patient. We have also discussed symptoms associated with inflammatory breast cancer. 3. I have reviewed the MRI from 08/29/[address] Clifford, the radiologist. He confirms that there probably was a slight leakage of the right breast implant at that time, however the volume of the right breast implant remains fairly normal. Given the MRI was a bilateral breast MRI, he feels that he bilateral mammogram in July 2024 is reasonable. The order slip was given to the patient for this. I have also recommended that she speak with a plastic surgeon who deals with breast implants to determine if anything further needs to be done with the right breast implant. 4. Kenalog 0.1% cream twice daily as needed for vulvar irritation. This prescription will be sent to [facility] pharmacy in [place]. 5. Osteoporosis management was discussed. I have stressed the importance of adequate calcium, vitamin D and regular exercise. Recommended amounts of calcium and vitamin D were also discussed. I have recommended repeating the bone density test. She states she would like to do this next year. 6. Continue conservative management for the pelvic prolapse. She will call if she is having problems with this. 7. She was advised to return in one year for her annual well woman exam and as needed.
== END ==
LOC: WWCWWP 09:06
PROVIDERS: ATTEND Obstetrics & Gynecology
DX: Z01.419 Encounter for gynecological examination (general) (routine) without abnormal findings (principal); N92.1 Excessive and frequent menstruation with irregular cycle; N76.3 Subacute and chronic vulvitis; N81.10 Cystocele, unspecified; Z87.39 Personal history of other diseases of the musculoskeletal system and connective tissue; Z88.2 Allergy status to sulfonamides